=== PATIENT | female | born 1935 | race Caucasian/White ===

== ENCOUNTER 2019-04-12 18:37 | Emergency (ER) | payer BC, MEDICARE, OTHER ==
[2019-04-12 21:19] LABS: ABSOLUTE BASOPHILS # (AUTO) 0.1 10^3/uL (0.0-0.2); ABSOLUTE EOSINOPHILS # (AUTO) 0.1 10^3/uL (0.0-0.6); ABSOLUTE LYMPHOCYTES (AUTO) 0.9 10^3/uL (0.5-4.7); ABSOLUTE MONOCYTES (AUTO) 0.6 10^3/uL (0.1-1.4); ABSOLUTE NEUT (AUTO) 6.1 10^3/uL (1.7-8.2); BASOPHILS % (AUTO) 0.8 % (0-2); EOSINOPHILS % (AUTO) 1.4 % (0-6); HEMOGLOBIN 9.6 g/dL (12.0-15.5); LYMPHOCYTES % (AUTO) 11.4 % (13-45); MEAN CORPUSCULAR HEMOGLOBIN 28.9 pg (27.0-33.4); MEAN CORPUSCULAR HGB CONC 33.2 g/dL (32.0-36.0); MEAN CORPUSCULAR VOLUME 87 fl (80-97); PLATELET COUNT 156 10^3/uL (150-450); RED BLOOD COUNT 3.33 10^6/uL (3.72-5.28); RED CELL DISTRIBUTION WIDTH 17.1 % (11.5-14.0); SEGMENTED NEUTROPHILS % (AUTO) 78.4 % (42-78); TOTAL CELLS COUNTED % (AUTO) 100 %; WHITE BLOOD COUNT 7.8 10^3/uL (4.0-10.5)
[2019-04-12 21:40] LABS: ALBUMIN 3.8 g/dL (3.5-5.0); ALKALINE PHOSPHATASE 67 U/L (38-126); ANION GAP 10 (5-19); ASPARTATE AMINO TRANSFERASE 20 U/L (14-36); BILIRUBIN,DIRECT 0.3 mg/dL (0.0-0.4); BILIRUBIN,TOTAL 0.6 mg/dL (0.2-1.3); BLOOD UREA NITROGEN 17 mg/dL (7-20); CALCIUM 9.6 mg/dL (8.4-10.2); CARBON DIOXIDE 28 mmol/L (22-30); CHLORIDE 105 mmol/L (98-107); CREATINE KINASE 56 U/L (30-135); GLUCOSE 130 mg/dL (75-110); POTASSIUM 3.1 mmol/L (3.6-5.0); TOTAL PROTEIN 7.2 g/dL (6.3-8.2)
[2019-04-12 21:52] LABS: CREATINE KINASE MB 1.07 ng/mL (<4.55); TROPONIN I 0.03 ng/mL
--- NOTE | 2019-04-12 21:54 | ER Document Report ---
ED Dizziness/Weakness <KIM VOSS - Last Filed: 04/13/19 00:29> <KATIE,KELBILLYASIF - Last Filed: 04/14/19 16:26> - General Chief Complaint: Weakness Stated Complaint: WEAKNESS Time Seen by Provider: 04/12/19 21:06 Notes: Patient is an 84-year-old female who presents to the emergency department with a chief complaint of weakness. Patient states that she has had multiple falls in the past. She states that she stubbed her toe a couple weeks ago on the left side. Since then she has not been able to do her normal activities of daily living. Patient states that she has family help her. She does have a decubitus ulcer forming on her coccyx area. Patient's family and friends have been using Neosporin for the area. Patient states that she uses a walker, but now her knees are giving out on her. Patient states that she lays in bed most of the day. (KIM VOSS) - Related Data Allergies/Adverse Reactions: No Known Allergies Allergy (Verified 04/12/19 19:15) Past Medical History - Social History Smoking Status: Never Smoker Frequency of alcohol use: None Drug Abuse: None Patient has suicidal ideation: No Patient has homicidal ideation: No <KIM VOSS - Last Filed: 04/13/19 00:29> - Social History Smoking Status: Never Smoker Lives with: Spouse/Significant other Family History: Reviewed & Not Pertinent <ABRAHAN WILSON - Last Filed: 04/14/19 16:26> Review of Systems <KIM VOSS - Last Filed: 04/13/19 00:29> - Review of Systems Notes: REVIEW OF SYSTEMS: CONSTITUTIONAL : Denies recent illness. Denies recent unintentional weight loss. Denies fever, chills, or sweats. EENT: Denies eye, ear, throat, or mouth pain, discharge, or symptoms. Denies nasal or sinus congestion. CARDIOVASCULAR: Denies chest pain. RESPIRATORY: Denies shortness of breath, cough, congestion, difficulty breathing, or wheezing. GASTROINTESTINAL: Denies nausea, vomiting, and diarrhea. Denies abdominal pain. Denies constipation. GENITOURINARY: Denies difficulty urinating, burning, blood in urine, urgency or frequency. MUSCULOSKELETAL: See HPI. SKIN: Denies rash, itchiness, or lesions HEMATOLOGIC : Denies easy bruising or bleeding. LYMPHATIC: Denies swollen, painful, enlarged glands. NEUROLOGICAL: Denies no numbness or tingling. Denies headache. Denies altered mental status. Denies alteration in speech. See HPI. PSYCHIATRIC: Denies stress, anxiety, alteration in sleep patterns, or depression. All other systems reviewed and negative. (MEJIA VOSSJESSICA Ann) Physical Exam <KIM VOSS - Last Filed: 04/13/19 00:29> - Vital signs Vitals: Pulse Ox 97 04/12/19 20:54 - Notes Notes: PHYSICAL EXAMINATION: GENERAL: Appears stated age, no acute distress. HEAD: Normocephalic, atraumatic. EYES: PERRL, conjunctiva normal, all extraocular movements intact, sclera nonicteric ENT: Dry mucous membranes. NECK: Supple, no noticeable swelling, redness, rash. Normal range of motion. LUNGS: Equal breath sounds bilaterally and clear to auscultation. No wheezes rales or rhonchi. CARDIOVASCULAR: S1-S2, regular rate, regular rhythm. Radial pulses 2+, normal. ABDOMEN: Normoactive bowel sounds. Soft, nontender, no guarding, no rebound tenderness, and no masses palpated. EXTREMITIES: Normal strength and range of motion, no pitting or edema. No cyanosis. NEUROLOGICAL: Moves all extremities upon command. Strength 5/5 in all extremities. Unable to stand. PSYCH: Normal mood, normal affect. SKIN: Warm, dry. Small stage II decubitus ulcer noted to coccyx area. Erythematous area to coccyx area. (MEJIA VOSSJESISCA Ann) Course - Laboratory Result Diagrams: 04/12/19 20:50 04/12/19 20:50 <KIM VOSS - Last Filed: 04/13/19 00:29> - Laboratory Result Diagrams: 04/12/19 20:50 04/13/19 18:11 <ABRAHAN WILSON - Last Filed: 04/14/19 16:26> - Re-evaluation Re-evalutation: 04/12/19 23:00 Hematology shows anemia with a hemoglobin of 9.6 and hematocrit of 29. Chemistry is show potassium of 3.1. This will be replaced. Troponin is indeterminate. Patient adamantly denies any chest pain or abdominal pain. CT of the head shows normal atrophy with small vessel ischemic changes. Her toe x- ray shows a minimally displaced fracture of the proximal phalanx of the great toe. Chest x-ray is unremarkable. Awaiting urinalysis. 04/13/19 00:14 The PCT and I attempted to stand the patient up at the side of the bed, but the patient states that she is too weak and she is afraid of falling. At this time, there is no admission criteria. Urinalysis has resulted and the patient does not meet admission criteria. Patient will be placed on a social hold and director of social media marketing will follow-up in the morning. (SHANIKA,KIM Ann) 04/13/19 12:57 Patient updated regarding plan of care. Spoke with data recovery planner Aniket who states that she is awaiting callback from [facility] and she is providing them with all the needed paperwork to see if patient can be placed in rehab from the emergency department. Aniket states that she will call back advising us whether patient was accepted or not. 04/14/19 11:35 Patient reports feeling improved today although is not able to ambulate unassisted. Patient is still awaiting word on possible placement at [facility]. maintenance planner Andrea is still attempting to make transfer arrangements. PHYSICAL EXAMINATION: GENERAL: Well-appearing and in no acute distress. HEAD: Atraumatic, normocephalic. EYES: sclera anicteric, conjunctiva are normal. ENT: nares patent. Moist mucous membranes. NECK: Normal range of motion, supple without lymphadenopathy LUNGS: CTAB and equal. No wheezes rales or rhonchi. HEART: Regular rate and rhythm without murmurs ABDOMEN: Soft, nontender, normal bowel sounds, no guarding. EXTREMITIES: Normal range of motion, no pitting edema. No cyanosis. BACK: No midline tenderness. No CVA tenderness NEUROLOGICAL: Normal speech. Patient with normal muscle tone 5 out of 5 to bilateral upper and lower extremities although patient unable to bear weight unassisted PSYCH: Normal mood, normal affect. SKIN: Warm, Dry, normal turgor, no rashes or lesions noted 04/14/19 15:24 Spoke with data recovery planner Andrea who is making arrangements for an in-home paraprofessional as well as referrals for PT, OT while we await acceptance on a rehab facility. Daughter has been contacted per discharge planning to arrange for transfer home today. Family and patient are agreeable with this plan of care. Patient will be transferred back to her home via [facility]. Patient advised that their primary doctor can still aid with placement in a rehab facility if [facility] does not accept her. (ABRAHAN WILSON) - Vital Signs Vital signs: Temp Pulse Resp BP Pulse Ox 97.5 F 87 20 159/71 H 95 04/14/19 09:21 04/14/19 09:21 04/14/19 09:21 04/14/19 09:21 04/14/19 09:21 - Laboratory Laboratory results interpreted by me: 04/12/19 04/12/19 04/12/19 20:50 20:50 23:30 RBC 3.33 L Hgb 9.6 L Hct 29.0 L RDW 17.1 H Lymph % (Auto) 11.4 L Seg Neutrophils % 78.4 H Potassium 3.1 L Est GFR (MDRD) Non-Af 54 L Glucose 130 H Urine Ketones TRACE H Urine Nitrite POSITIVE H Urine Urobilinogen 2.0 H 04/13/19 18:11 RBC Hgb Hct RDW Lymph % (Auto) Seg Neutrophils % Potassium 3.3 L Est GFR (MDRD) Non-Af Glucose Urine Ketones Urine Nitrite Urine Urobilinogen Discharge <KIM VOSS - Last Filed: 04/13/19 00:29> <ABRAHAN WILSON - Last Filed: 04/14/19 16:26> - Discharge Clinical Impression: Weakness, Hypokalemia Fracture of phalanx of left great toe Qualifiers: Encounter type: initial encounter Fracture type: closed Phalanx: distal Fracture alignment: displaced Qualified Code(s): S92.422A - Displaced fracture of distal phalanx of left great toe, initial encounter for closed fracture UTI (urinary tract infection) Qualifiers: Urinary tract infection type: site unspecified Hematuria presence: without hematuria Qualified Code(s): N39.0 - Urinary tract infection, site not specified Condition: Stable Disposition: HOME, SELF-CARE Instructions: Cephalexin ([facility]), Hypokalemia ([facility]), Trimethoprim-Sulfa ([facility]), Weakness ([facility]) Additional Instructions: Return immediately for any new or worsening symptoms Followup with your primary care provider, call tomorrow to make a followup appointment Consult has been made for home health care to include a home health aide as well as physical therapy, and Occupational Therapy Your primary doctor can also help with placement into a rehab facility you await and reply from [facility] Increase diet with foods high in potassium such as bananas Prescriptions: Cephalexin Monohydrate [Keflex 500 mg Capsule] 500 mg PO BID 3 Days capsule
--- NOTE | 2019-04-12 22:32 | RADIOLOGY REPORT (SQ) ---
EXAM DESCRIPTION: XR TOES 2 OR MORE VIEWS COMPLETED DATE/TME: 04/12/2019 21:24 CLINICAL HISTORY: 84 years, Female, fall; weakness COMPARISON: None. NUMBER OF VIEWS: 3 TECHNIQUE: 3 views left great toe LIMITATIONS: None. FINDINGS: Osteopenia. Minimally displaced fracture of the proximal portion of the proximal phalanx of the great toe. Associated soft tissue swelling. Vascular calcifications. IMPRESSION: Minimally displaced fracture of the proximal phalanx of the great toe copyright 2010 [employer]- All Rights Reserved
--- NOTE | 2019-04-12 22:32 | RADIOLOGY REPORT (SQ) ---
EXAM DESCRIPTION: XR CHEST 1 VIEW COMPLETED DATE/TME: 04/12/2019 21:23 CLINICAL HISTORY: 84 years, Female, weakness COMPARISON: None NUMBER OF VIEWS: 1 TECHNIQUE: Portable chest LIMITATIONS: None. FINDINGS: Cardiomegaly. Atheromatous change of the thoracic aorta. Electronic device projects over the right hemithorax. Lungs are clear. No pneumothorax IMPRESSION: No acute cardiopulmonary process copyright 2010 [employer]- All Rights Reserved
--- NOTE | 2019-04-12 23:33 | RADIOLOGY REPORT (SQ) ---
EXAM DESCRIPTION: CT HEAD WITHOUT IV CONTRAST COMPLETED DATE/TME: 04/12/2019 21:23 CLINICAL HISTORY: 84 years, Female, weakness COMPARISON: None. TECHNIQUE: 186 Images stored on PACS. All CT scanners at this facility use dose modulation, iterative reconstruction, and/or weight based dosing when appropriate to reduce radiation dose to as low as reasonably achievable (ALARA). [facility]: Dose Right [facility]: CareDose [facility]: Dose Right [facility]: Teradose 4D [facility]: [employer] LIMITATIONS: None. FINDINGS: The globes are intact. The paranasal sinuses and mastoid air cells are unremarkable. No displaced or depressed skull fracture. No intra or extra-axial hemorrhage. CT is limited for evaluation of acute infarct. No CT evidence for large or territorial acute infarct. No mass. No midline shift. Age-appropriate atrophy. Small vessel ischemic change. IMPRESSION: Age-appropriate atrophy with small vessel ischemic change TECHNICAL DOCUMENTATION: Quality ID # 436: Final reports with documentation of one or more dose reduction techniques (e.g., Automated exposure control, adjustment of the mA and/or kV according to patient size, use of iterative reconstruction technique) copyright 2011 [employer]- All Rights Reserved
[2019-04-12 23:51] LABS: APPEARANCE,URINE SLIGHTLY-CLOUDY; BILIRUBIN,URINE NEGATIVE (NEGATIVE); COLOR,URINE YELLOW; GLUCOSE, URINE NEGATIVE (NEGATIVE); KETONES,URINE TRACE mg/dL (NEGATIVE); LEUKOCYTE ESTERASE,URINE NEGATIVE (NEGATIVE); NITRITE,URINE POSITIVE (NEGATIVE); PROTEIN,URINE NEGATIVE (NEGATIVE); URINE SPECIFIC GRAVITY 1.014
[2019-04-13] MEDS: POTASSI CL 20 MEQ/50 ML RIDER 20 MEQ/50 ML RTUPB IV SCH ×2 (00:39→02:43)
--- NOTE | 2019-04-13 08:07 | EKG REPORT ---
SEVERITY:- BORDERLINE ECG - SINUS RHYTHM BORDERLINE LEFT AXIS DEVIATION BORDERLINE T ABNORMALITIES, INFERIOR LEADS : Confirmed by: Jeremy Saldaña MD 13-Apr-2019 08:06:43
[2019-04-13] MEDS ORDERED: CEPHALEXIN 500 MG CAPSULE PO ONE ×2 (16:35→17:07)
[2019-04-13 18:56] LABS: ANION GAP 17 (5-19); BLOOD UREA NITROGEN 12 mg/dL (7-20); CALCIUM 9.5 mg/dL (8.4-10.2); CARBON DIOXIDE 24 mmol/L (22-30); CHLORIDE 102 mmol/L (98-107); GLUCOSE 110 mg/dL (75-110); POTASSIUM 3.3 mmol/L (3.6-5.0)
[2019-04-13] MEDS ORDERED: POTASSIUM CHLORIDE 10 MEQ TABLET.ER PO ONE (19:42)
[2019-04-13] MEDS ORDERED: SIMVASTATIN 10 MG TABLET PO ONE (19:45)
[2019-04-13] MEDS ORDERED: AMLODIPINE BESYLATE 10 MG TABLET PO ONE (19:46)
[2019-04-13] MEDS ORDERED: METFORMIN HCL 500 MG TABLET PO ONE (19:46)
[2019-04-14 09:31] VITALS: BP 159/71
[2019-04-14] MEDS ORDERED: LOSARTAN POTASSIUM 50 MG TABLET PO ONE (10:54)
[2019-04-14] MEDS ORDERED: HYDROCHLOROTHIAZIDE 25 MG TABLET PO ONE (10:56)
[2019-04-14] MEDS ORDERED: CEPHALEXIN 500 MG CAPSULE PO ONE (11:37)
[2019-04-14] MEDS ORDERED: POTASSIUM CHLORIDE 10 MEQ TABLET.ER PO ONE (11:38)
[2019-04-14] MEDS ORDERED: AMLODIPINE BESYLATE 10 MG TABLET PO ONE (11:49)
[2019-04-14] MEDS ORDERED: METFORMIN HCL 500 MG TABLET PO SCH (18:00)
[2019-04-14] MEDS ORDERED: POTASSIUM CHLORIDE 10 MEQ TABLET.ER PO SCH (18:00)
[2019-04-15] MEDS ORDERED: AMLODIPINE BESYLATE 10 MG TABLET PO SCH (10:00)
[2019-04-15] MEDS ORDERED: HYDROCHLOROTHIAZIDE 25 MG TABLET PO SCH (10:00)
[2019-04-15] MEDS ORDERED: SIMVASTATIN 10 MG TABLET PO SCH (22:00)
== END 2019-04-14 19:30 | disposition home or self-care (01) ==
LOC: ER 18:37
DX: S92.422A Displaced fracture of distal phalanx of left great toe, initial encounter for closed fracture (principal); W22.09XA Striking against other stationary object, initial encounter; N39.0 Urinary tract infection, site not specified; E87.6 Hypokalemia; R53.1 Weakness; L89.152 Pressure ulcer of sacral region, stage 2
CPT/HCPCS: 93005; 99285; 96365; 96366; 36415; 87086; 82553; 82550; 85025; 87088; 80048; 80053; 81001; 84484; 87186; 71045; 73660; 70450; 93010; A9270 ×11; J3480

== ENCOUNTER 2019-04-21 13:31 | Emergency (ER) | payer OTHER ==
--- NOTE | 2019-04-21 15:17 | ER Document Report ---
ED General - General Chief Complaint: Urinary Problem Stated Complaint: POSSIBLE UTI Primary Care Provider: BENITA ISIDRO NP [Primary Care Provider] - Follow up as needed - HPI Notes: 84-year-old female presents the emergency room via EMS with both daughters for complaints of generalized weakness, right lower quadrant abdominal bulge, substernal chest pain for the last 3 days. Denies fevers, chills, palpitations, shortness of breath, dyspnea, nausea, vomiting, diarrhea, abdominal pain, hematuria,blurred vision, double vision, loss of vision, speech changes, LH, dizziness, syncope, headaches, wheezing, ST, URI, neck pain, bowel or bladder dysfunction, saddle anesthesia, numbness or tingling in bilateral upper or lower extremities equally, muscle paralysis, weakness in bilateral upper or lower extremities equally or rash. - Related Data Allergies/Adverse Reactions: No Known Allergies Allergy (Verified 04/12/19 19:15) Past Medical History - General Information source: Patient, Relative - Social History Smoking Status: Never Smoker Family History: Reviewed & Not Pertinent Patient has suicidal ideation: No Patient has homicidal ideation: No - Past Medical History Cardiac Medical History: Reports: Hx Hypercholesterolemia, Hx Hypertension Endocrine Medical History: Reports: Hx Diabetes Mellitus Type 2 Past Surgical History: Reports: Hx Section - x4 Review of Systems - Review of Systems Constitutional: See HPI EENT: No symptoms reported Cardiovascular: No symptoms reported Respiratory: No symptoms reported Gastrointestinal: See HPI Genitourinary: No symptoms reported Female Genitourinary: No symptoms reported Musculoskeletal: No symptoms reported Skin: See HPI Hematologic/Lymphatic: No symptoms reported Neurological/Psychological: No symptoms reported Physical Exam - Vital signs Vitals: Temp Pulse Resp BP Pulse Ox 97.3 F 84 16 139/44 H 95 04/21/19 14:04 04/21/19 14:04 04/21/19 14:04 04/21/19 14:04 04/21/19 14:04 - Notes Notes: PHYSICAL EXAMINATION: reviewed vital signs by RN GENERAL: Chronically ill well-nourished and in no acute distress. HEAD: Atraumatic, normocephalic. EYES: Pupils equal round and reactive to light, extraocular movements intact, conjunctiva are normal. ENT: Nares patent, oropharynx clear without exudates. Moist mucous membranes. NECK: Normal range of motion, supple without lymphadenopathy LUNGS: Breath sounds clear to auscultation bilaterally and equal. No wheezes rales or rhonchi. HEART: Regular rate and rhythm without murmurs ABDOMEN: Soft, nontender, nondistended abdomen. No guarding, no rebound. No masses appreciated. Female : deferred Musculoskeletal: Normal range of motion, no pitting or edema. No cyanosis. NEUROLOGICAL: Cranial nerves grossly intact. Normal speech, normal gait. Normal sensory, motor exams PSYCH: Normal mood, normal affect. SKIN: Warm, Dry, normal turgor, no rashes or lesions noted. Course - Re-evaluation Re-evalutation: 04/23/19 11:41 CBC negative for leukocytosis or anemia, CMP negative for hepatic or renal dysfunction, no electrolyte disturbances. EKG negative for STEMI, initial troponin negative. Urinalysis unremarkable. Chest x-ray negative for pneumonia, pneumothorax or other pulmonary issues. No medical diagnoses or etiologies for hospital admission. Discussed with patient that they can be managed outpatient with physical therapy and in coordination with primary care provider as well as with social worker school. Patient and family stated that they do not want to leave the emergency room because she is unable to ambulate at home, she is too weak to go home. Consulted with Raad Erickson, clinical advocate for a social hold. After evaluating patient, Raad felt that patient was appropriate for social hold and will reevaluate in the morning to find a ppropriate outpatient resources for patient. Patient remains afebrile vitals are stable and in his no distress. Dinner tray has been ordered. Patient and family were agreeable with the plan of care. Disposition was given to CYNTHIA Chaudhry at 1999 - Vital Signs Vital signs: Temp Pulse Resp BP Pulse Ox 98.2 F 83 18 157/59 H 93 04/23/19 10:00 04/23/19 10:00 04/23/19 10:00 04/23/19 10:00 04/23/19 10:00 - Laboratory Result Diagrams: 04/21/19 13:55 04/21/19 13:55 Laboratory results interpreted by me: 04/21/19 04/21/19 04/21/19 13:55 13:55 16:20 RBC 3.58 L Hgb 10.2 L Hct 31.3 L RDW 17.5 H BUN 24 H Est GFR (MDRD) Non-Af 50 L Glucose 144 H POC Glucose Direct Bilirubin 0.5 H Urine Urobilinogen 2.0 H 04/22/19 06:42 RBC Hgb Hct RDW BUN Est GFR (MDRD) Non-Af Glucose POC Glucose 135 H Direct Bilirubin Urine Urobilinogen Discharge - Discharge Clinical Impression: right umbilical hernia, Weakness Anemia Qualifiers: Anemia type: unspecified type Qualified Code(s): D64.9 - Anemia, unspecified Condition: Stable Disposition: OTHER Referrals: BENITA ISIDRO, REVENUE CYCLE ADMINISTRATOR [Primary Care Provider] - Follow up as needed
[2019-04-21 16:08] LABS: ABSOLUTE EOSINOPHILS # (AUTO) 0.2 10^3/uL (0.0-0.6); ABSOLUTE LYMPHOCYTES (AUTO) 0.8 10^3/uL (0.5-4.7); ABSOLUTE MONOCYTES (AUTO) 0.7 10^3/uL (0.1-1.4); ABSOLUTE NEUT (AUTO) 4.2 10^3/uL (1.7-8.2); BASOPHILS % (AUTO) 0.5 % (0-2); EOSINOPHILS % (AUTO) 2.9 % (0-6); HEMATOCRIT 31.3 % (36.0-47.0); HEMOGLOBIN 10.2 g/dL (12.0-15.5); LYMPHOCYTES % (AUTO) 13.4 % (13-45); MEAN CORPUSCULAR HEMOGLOBIN 28.5 pg (27.0-33.4); MEAN CORPUSCULAR HGB CONC 32.6 g/dL (32.0-36.0); MEAN CORPUSCULAR VOLUME 87 fl (80-97); MONOCYTES % (AUTO) 11.3 % (3-13); PLATELET COUNT 159 10^3/uL (150-450); RED BLOOD COUNT 3.58 10^6/uL (3.72-5.28); RED CELL DISTRIBUTION WIDTH 17.5 % (11.5-14.0); SEGMENTED NEUTROPHILS % (AUTO) 71.9 % (42-78); TOTAL CELLS COUNTED % (AUTO) 100 %; WHITE BLOOD COUNT 5.8 10^3/uL (4.0-10.5)
--- NOTE | 2019-04-21 16:10 | RADIOLOGY REPORT (SQ) ---
EXAM DESCRIPTION: CHEST SINGLE VIEW COMPLETED DATE/TIME: 04/21/2019 4:02 pm REASON FOR STUDY: chest pain COMPARISON: Chest film 04/12/2019 EXAM PARAMETERS: NUMBER OF VIEWS: One view. TECHNIQUE: Single frontal radiographic view of the chest acquired. RADIATION DOSE: NA LIMITATIONS: None. FINDINGS: LUNGS AND PLEURA: No opacities, masses or pneumothorax. No pleural effusion. 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 This is similar compared to 2018 HEART AND VASCULAR STRUCTURES: Heart normal in size. Normal vasculature. BONES: PUD rightward bulky osteophyte at about the T7-8 level unchanged. HARDWARE: None in the chest. OTHER: No other significant finding. IMPRESSION: NO ACUTE RADIOGRAPHIC FINDING IN THE CHEST. TECHNICAL DOCUMENTATION: JOB ID: [id number] [employer]- All Rights Reserved Reading location - IP/workstation name: [email or web address]
[2019-04-21 16:11] LABS: INTERNATIONAL RATION (INR) 1.06; PROTHROMBIN TIME 13.8 SEC (11.4-15.4)
[2019-04-21 16:12] LABS: PARTIAL THROMBOPLASTIN TIME 25.8 SEC (23.5-35.8)
[2019-04-21 16:15] LABS: ALBUMIN 4.1 g/dL (3.5-5.0); ALKALINE PHOSPHATASE 70 U/L (38-126); ANION GAP 10 (5-19); ASPARTATE AMINO TRANSFERASE 24 U/L (14-36); BILIRUBIN,DIRECT 0.5 mg/dL (0.0-0.4); BILIRUBIN,TOTAL 0.6 mg/dL (0.2-1.3); BLOOD UREA NITROGEN 24 mg/dL (7-20); CALCIUM 9.6 mg/dL (8.4-10.2); CARBON DIOXIDE 29 mmol/L (22-30); CHLORIDE 102 mmol/L (98-107); GLUCOSE 144 mg/dL (75-110); POTASSIUM 3.6 mmol/L (3.6-5.0); TOTAL PROTEIN 7.6 g/dL (6.3-8.2)
[2019-04-21 16:26] LABS: NT PRO BNP 259 pg/mL (<450)
[2019-04-21 16:27] LABS: TROPONIN I < 0.012 ng/mL
[2019-04-21 16:35] LABS: APPEARANCE,URINE CLEAR; BILIRUBIN,URINE NEGATIVE (NEGATIVE); COLOR,URINE YELLOW; GLUCOSE, URINE NEGATIVE (NEGATIVE); KETONES,URINE NEGATIVE (NEGATIVE); LEUKOCYTE ESTERASE,URINE NEGATIVE (NEGATIVE); NITRITE,URINE NEGATIVE (NEGATIVE); PROTEIN,URINE NEGATIVE (NEGATIVE); URINE SPECIFIC GRAVITY 1.012
--- NOTE | 2019-04-21 16:37 | RADIOLOGY REPORT (SQ) ---
EXAM DESCRIPTION: CT HEAD WITHOUT COMPLETED DATE/TIME: 04/21/2019 4:13 pm REASON FOR STUDY: chest pain COMPARISON: 04/12/2019. TECHNIQUE: Axial images acquired through the brain without intravenous contrast. Images reviewed wi th bone, brain and subdural windows. Additional sagittal and coronal reconstructions were generated. Images stored on PACS. All CT scanners at this facility use dose modulation, iterative reconstruction, and/or weight based d osing when appropriate to reduce radiation dose to as low as reasonably achievable (ALARA). [facility]: Dose Right [facility]: CareDose [facility]: Dose Right [facility]: Teradose 4D [facility]: [employer] RADIATION DOSE: CT Rad equipment meets quality standard of care and radiation dose reduction techniq ues were employed. CTDIvol: 53.2 mGy. DLP: 964 mGy-cm.mGy. LIMITATIONS: None. FINDINGS: VENTRICLES: Prominent. CEREBRUM: No masses. No hemorrhage. No midline shift. Areas of low density in the white matter mos t likely due to chronic micro-vascular ischemic change. No evidence for acute infarction. CEREBELLUM: No masses. No hemorrhage. No alteration of density. No evidence for acute infarction. EXTRAAXIAL SPACES: Age-related involutional change. No fluid collections. No masses. ORBITS AND GLOBE: No intra- or extraconal masses. Normal contour of globe without masses. CALVARIUM: No fracture. PARANASAL SINUSES: No fluid or mucosal thickening. SOFT TISSUES: No mass or hematoma. OTHER: No other significant finding. IMPRESSION: CHRONIC CHANGES OF ATROPHY AND MICROVASCULAR ISCHEMIA. NO ACUTE PROCESS. EVIDENCE OF ACUTE STROKE: NO. TECHNICAL DOCUMENTATION: JOB ID: [id number] Quality ID # 436: Final reports with documentation of one or more dose reduction techniques (e.g., Au tomated exposure control, adjustment of the mA and/or kV according to patient size, use of iterative reconstruction technique) 2010 [employer]- All Rights Reserved Reading location - IP/workstation name: [email or web address]
--- NOTE | 2019-04-21 17:49 | RADIOLOGY REPORT (SQ) ---
EXAM DESCRIPTION: U/S ABDOMEN LIMITED W/O DOP COMPLETED DATE/TIME: 04/21/2019 5:27 pm REASON FOR STUDY: hernia RLQ COMPARISON: None. TECHNIQUE: Dynamic and static grayscale images acquired of the abdomen and recorded on PACS. Additio nal selected color Doppler and spectral images recorded. LIMITATIONS: None. FINDINGS: Focused ultrasound along the anterior abdominal wall periumbilical region was performed. Patient has a palpable abnormality along the rightward aspect of the umbilicus. At ultrasound, there is bulging of mesenteric or omental fat through the small umbilical defect, with a 3.5 cm reducible fatty nodule present. No peristalsis to suggest herniated bowel. Based fatty protrusions through the umbilicus is reducible with gentle pressure from the transducer. IMPRESSION: Fat containing umbilical hernia. TECHNICAL DOCUMENTATION: JOB ID: [id number] [employer]- All Rights Reserved Reading location - IP/workstation name: [email or web address]
--- NOTE | 2019-04-21 22:39 | EKG REPORT ---
SEVERITY:- ABNORMAL ECG - SINUS RHYTHM BORDERLINE LEFT AXIS DEVIATION NONSPECIFIC T ABNORMALITIES, ANTERIOR LEADS : Confirmed by: Glenda Barrera 21-Apr-2019 22:38:57
[2019-04-22] MEDS: HYDROCHLOROTHIAZIDE 25 MG TABLET PO SCH ×2 (07:48→09:32)
[2019-04-22] MEDS: LOSARTAN POTASSIUM 50 MG TABLET PO SCH ×2 (07:49→09:32)
[2019-04-22] MEDS: AMLODIPINE BESYLATE 10 MG TABLET PO SCH ×2 (07:49→09:32)
[2019-04-22] MEDS: METFORMIN HCL 500 MG TABLET PO SCH ×2 (09:32→18:32)
--- NOTE | 2019-04-22 14:21 | ER Document Report ---
Doctor's Note Notes: 04/22/19 13:40 Spoke with menu planner, Ciara Kwok, who recommends obtaining a PT referral at this time. Ciara states that she does have a planned consult with the patient's daughter to discuss discharge plan of care. 04/22/19 14:20 Consult placed to hospitalist CYNTHIA Wood who does agree to evaluate patient. CYNTHIA Wood advised of discharge planning request for PT referral placement. 04/22/19 18:30 Consulted again with menu planner Ciara who states that she will be in charge of forwarding [facility] the appropriate paperwork and will again apply for placement. We are currently pending PT evaluation that should occur tomorrow. (ABRAHAN WILSON) 04/25/19 19:55 Patient remains a social hold. It seems placement will not happen until Saturday. No acute medical issues at present. (ANUPAM,JESSICA Fry)
--- NOTE | 2019-04-22 14:46 | Progress Note ---
Provider Note Provider Note: 04/22/2019 I was called by the emergency room provider to facilitate patient's placement into either senior living facility or rehab facility. It was explained to me that the emergency room providers are unable to make a physical therapy consult. production planner scheduler who was involved in this case was asking for a physical therapy consult, that may help the patient be placed in a rehab facility. I was more than happy to put the order in for PT consult x1. History as it was presented to me is 1 of ambulatory dysfunction. Patient evidently was here approximately 1 week ago with the same complaint. Patient was not seen officially nor examined. I did introduce myself to the patient in her room and told her that I would try to help get her placed to the proper facility.
[2019-04-22] MEDS: SIMVASTATIN 40 MG TABLET PO SCH (23:23)
[2019-04-23] MEDS: AMLODIPINE BESYLATE 10 MG TABLET PO SCH (09:38)
[2019-04-23] MEDS: METFORMIN HCL 500 MG TABLET PO SCH ×2 (09:38→18:55)
[2019-04-23] MEDS: HYDROCHLOROTHIAZIDE 25 MG TABLET PO SCH (09:38)
[2019-04-23] MEDS: LOSARTAN POTASSIUM 50 MG TABLET PO SCH (09:38)
[2019-04-23] MEDS: SIMVASTATIN 40 MG TABLET PO SCH (21:21)
[2019-04-24] MEDS: AMLODIPINE BESYLATE 10 MG TABLET PO SCH (10:00)
[2019-04-24] MEDS: HYDROCHLOROTHIAZIDE 25 MG TABLET PO SCH (10:00)
[2019-04-24] MEDS: LOSARTAN POTASSIUM 50 MG TABLET PO SCH (10:01)
[2019-04-24] MEDS: METFORMIN HCL 500 MG TABLET PO SCH ×2 (10:01→18:15)
[2019-04-24] MEDS: SIMVASTATIN 40 MG TABLET PO SCH (21:46)
[2019-04-25] MEDS: METFORMIN HCL 500 MG TABLET PO SCH ×2 (09:39→18:03)
[2019-04-25] MEDS: HYDROCHLOROTHIAZIDE 25 MG TABLET PO SCH (09:39)
[2019-04-25] MEDS: LOSARTAN POTASSIUM 50 MG TABLET PO SCH (09:39)
[2019-04-25] MEDS: AMLODIPINE BESYLATE 10 MG TABLET PO SCH (09:39)
[2019-04-25] MEDS: SIMVASTATIN 40 MG TABLET PO SCH ×2 (21:24→23:07)
[2019-04-26] MEDS: LOSARTAN POTASSIUM 50 MG TABLET PO SCH (10:27)
[2019-04-26] MEDS: METFORMIN HCL 500 MG TABLET PO SCH ×2 (10:27→18:07)
[2019-04-26] MEDS: AMLODIPINE BESYLATE 10 MG TABLET PO SCH (10:27)
[2019-04-26] MEDS: HYDROCHLOROTHIAZIDE 25 MG TABLET PO SCH (10:27)
--- NOTE | 2019-04-26 18:48 | ER Document Report ---
Doctor's Note Notes: 04/26/19 18:48 Patient continues to wait for placement. Nurse taking care of her today reports that the patient does not make any attempt to get up or move about. She is having some redness developing on her sacral region, so they have been turning her, repositioning her, and changing pillow placements to try to help prevent her from getting bedsores. They are concerned that she is intentionally not participating in her care in an attempt to get placed into [facility].
[2019-04-26] MEDS: SIMVASTATIN 40 MG TABLET PO SCH (22:20)
[2019-04-27] MEDS: LOSARTAN POTASSIUM 50 MG TABLET PO SCH (10:15)
[2019-04-27] MEDS: METFORMIN HCL 500 MG TABLET PO SCH ×2 (10:15→18:16)
[2019-04-27] MEDS: HYDROCHLOROTHIAZIDE 25 MG TABLET PO SCH (10:15)
[2019-04-27] MEDS: AMLODIPINE BESYLATE 10 MG TABLET PO SCH (10:16)
--- NOTE | 2019-04-27 17:55 | ER Document Report ---
Doctor's Note Notes: 04/27/19 17:54 Physical therapy did come by earlier this morning and worked with the patient with getting up and down and sitting on the edge of the bed and balance. Otherwise it was an unremarkable day.
[2019-04-27] MEDS: SIMVASTATIN 40 MG TABLET PO SCH (21:32)
[2019-04-28] MEDS: LOSARTAN POTASSIUM 50 MG TABLET PO SCH (09:20)
[2019-04-28] MEDS: AMLODIPINE BESYLATE 10 MG TABLET PO SCH (09:20)
[2019-04-28] MEDS: METFORMIN HCL 500 MG TABLET PO SCH ×2 (09:20→17:41)
[2019-04-28] MEDS: HYDROCHLOROTHIAZIDE 25 MG TABLET PO SCH (09:20)
--- NOTE | 2019-04-28 18:31 | ER Document Report ---
Doctor's Note Notes: 04/28/19 18:28 See the social workers notes from yesterday and today. Patient is presently sitting up in a recliner eating supper. Vital signs are stable. She is comfortable. She is getting up and down more, since she started her physical therapy yesterday.
[2019-04-28] MEDS: SIMVASTATIN 40 MG TABLET PO SCH (21:23)
[2019-04-29] MEDS: AMLODIPINE BESYLATE 10 MG TABLET PO SCH (09:21)
[2019-04-29] MEDS: HYDROCHLOROTHIAZIDE 25 MG TABLET PO SCH (09:21)
[2019-04-29] MEDS: LOSARTAN POTASSIUM 50 MG TABLET PO SCH (09:21)
[2019-04-29] MEDS: METFORMIN HCL 500 MG TABLET PO SCH ×2 (09:22→18:13)
--- NOTE | 2019-04-29 19:35 | ER Document Report ---
Doctor's Note Notes: 04/29/19 19:34 Patient seen and examined. She expresses no concerns other than some discomfort with a foam pad that was placed over a sore on her backside. Otherwise, she is eating and drinking normally. Taking her medications. Has no other acute complaints or concerns. Still awaiting placement, please see case management notes. Objective: This is a pleasant 84-year-old female who appears younger than her stated age in no acute distress. Head is normocephalic and atraumatic. Heart is regular rate and rhythm with loud systolic murmur, lungs are clear to auscultation bilaterally. Abdomen is soft, nontender, normoactive bowel sounds. She does have 1 stage I decubitus noted in the sacral region without any other signs of significant skin breakdown. Assessment: generalized weakness, umbilical hernia, decubitus ulcer. Plan: We will keep an eye on the decubitus ulcer. Generalized weakness being dealt with with physical therapy. Awaiting placement. Will reevaluate tomorrow.
[2019-04-29] MEDS: SIMVASTATIN 40 MG TABLET PO SCH (21:17)
[2019-04-30 05:48] VITALS: BP 147/61
[2019-04-30] MEDS: HYDROCHLOROTHIAZIDE 25 MG TABLET PO SCH (09:05)
[2019-04-30] MEDS: METFORMIN HCL 500 MG TABLET PO SCH (09:05)
[2019-04-30] MEDS: AMLODIPINE BESYLATE 10 MG TABLET PO SCH (09:07)
[2019-04-30] MEDS: LOSARTAN POTASSIUM 50 MG TABLET PO SCH (09:07)
--- NOTE | 2019-04-30 15:14 | ER Document Report ---
Doctor's Note Notes: 04/30/19 15:12 Patient was seen and examined. She was upright in the chair, doing her physical therapy exercises. She denies any pain or discomfort. She has been eating and drinking normally. No other acute complaints or concerns. I was notified by case management that the patient has a bed at [facility], will be able to be discharged to that facility today. Vital signs reviewed. Patient is awake and alert, cooperative with examiner. No acute distress. Heart is regular rate and rhythm, lungs are clear to auscultation bilaterally. Abdomen is soft and nontender. No CVA tenderness. Skin is warm and dry. Assessment: Patient with generalized weakness. She had a urinary tract infection that is cleared, been treated appropriately. Plan: Patient is stable. We will continue her on medications, discharge the patient to [facility].
== END 2019-04-30 16:45 ==
LOC: ER 13:31
DX: R53.1 Weakness (principal); K42.9 Umbilical hernia without obstruction or gangrene; D64.9 Anemia, unspecified; R07.2 Precordial pain; I10 Essential (primary) hypertension; E11.9 Type 2 diabetes mellitus without complications; R01.1 Cardiac murmur, unspecified; L89.151 Pressure ulcer of sacral region, stage 1; Z75.1 Person awaiting admission to adequate facility elsewhere
CPT/HCPCS: 93005; 99284; 36415; 82962; 83690; 85025; 85610; 85730; 80053; 81001; 84484; 83880; 71045; 76705; 70450; 93010; 97530; A9270 ×44

== ENCOUNTER 2019-12-11 11:01 | Observation (INO) | payer MEDICARE, MEDICAID ==
[2019-12-11 11:43] LABS: VENOUS BLOOD BASE EXCESS 1.5 mmol/L; VENOUS BLOOD HCO3 26.6 mmol/L (20-32); VENOUS BLOOD PCO2 44.4 mmHg (35-63); VENOUS BLOOD PH 7.4 (7.30-7.42)
[2019-12-11 11:50] LABS: ABSOLUTE BASOPHILS # (AUTO) 0.1 10^3/uL (0.0-0.2); ABSOLUTE EOSINOPHILS # (AUTO) 0.1 10^3/uL (0.0-0.6); ABSOLUTE LYMPHOCYTES (AUTO) 0.8 10^3/uL (0.5-4.7); ABSOLUTE MONOCYTES (AUTO) 0.5 10^3/uL (0.1-1.4); ABSOLUTE NEUT (AUTO) 4.4 10^3/uL (1.7-8.2); BASOPHILS % (AUTO) 1.1 % (0-2); EOSINOPHILS % (AUTO) 2.1 % (0-6); HEMATOCRIT 23.1 % (36.0-47.0); MEAN CORPUSCULAR HEMOGLOBIN 20.8 pg (27.0-33.4); MEAN CORPUSCULAR HGB CONC 30.5 g/dL (32.0-36.0); MEAN CORPUSCULAR VOLUME 68 fl (80-97); MONOCYTES % (AUTO) 9.1 % (3-13); PLATELET COUNT 177 10^3/uL (150-450); RED BLOOD COUNT 3.39 10^6/uL (3.72-5.28); RED CELL DISTRIBUTION WIDTH 20.5 % (11.5-14.0); SEGMENTED NEUTROPHILS % (AUTO) 73.7 % (42-78); TOTAL CELLS COUNTED % (AUTO) 100 %
[2019-12-11 11:51] LABS: PROTHROMBIN TIME 13.4 SEC (11.4-15.4)
--- NOTE | 2019-12-11 11:57 | ER Document Report ---
ED General - General Chief Complaint: Abnormal Lab Results Stated Complaint: ABNORMAL LABS/SHORTNESS OF BREATH Time Seen by Provider: 12/11/19 11:42 Primary Care Provider: SANJANA WHEAT MD [Primary Care Provider] - Follow up as needed - HPI Notes: Chief complaint: Anemia and shortness of breath History of present illness: 84-year-old female [facility] resident from [facility] and because of progressive shortness of breath over the past 5 to 7 days and finding of worsening anemia with a hemoglobin there yesterday reported as 6.8 g. Patient denies any abdominal pain, nausea/vomiting, hematemesis, melena or hematochezia. She has been chronically anemic in the past. Patient says she is ordinarily ambulatory with a walker. She is found it difficult to walk within the last several days due to dyspnea. She denies chest pain, syncope, or presyncope. Primary provider: Sanjana Wheat - Related Data Allergies/Adverse Reactions: No Known Allergies Allergy (Verified 04/12/19 19:15) Past Medical History - General Information source: Patient, [facility] Records - Social History Smoking Status: Never Smoker Chew tobacco use (# tins/day): No Frequency of alcohol use: None Drug Abuse: None Lives with: [facility] Family History: Reviewed & Not Pertinent Patient has homicidal ideation: No - Past Medical History Cardiac Medical History: Reports: Hx Hypercholesterolemia, Hx Hypertension Endocrine Medical History: Reports: Hx Diabetes Mellitus Type 2 Past Surgical History: Reports: Hx Section - x4 Review of Systems - Review of Systems Notes: Constitutional: Negative for fever. HENT: Negative for sore throat. Eyes: Negative for visual changes. Cardiovascular: Negative for chest pain. Respiratory: Negative for shortness of breath. Gastrointestinal: Negative for abdominal pain, vomiting or diarrhea. Genitourinary: Mild dysuria. Musculoskeletal: Negative for back pain. Skin: Negative for rash. Neurological: Negative for headaches, focal weakness or numbness. 10 point ROS negative except as marked above and in HPI. Physical Exam - Vital signs Vitals: Temp 98.8 F 12/11/19 11:02 - Notes Notes: GENERAL: Frail elderly female appearing in no acute distress. SKIN: Pale. Good turgor no rashes. HEAD: Normocephalic atraumatic. EYES: PERRLA. EOMI. Conjunctivae and sclerae clear. EARS: CANALS AND TMS CLEAR. NOSE: CLEAR. MOUTH: Moist mucosa. Good dentition. No stridor or edema. No drooling. NECK: Supple. No masses or thyromegaly. No adenopathy. Carotids 2+ without bruits. No JVD. BACK: Symmetrical without tenderness. CHEST: Respirations unlabored. Breath sounds clear and symmetrical. HEART: Regular rhythm. No murmur gallop or rub. ABDOMEN: Soft nontender without masses, organomegaly or rebound. Bowel sounds normally active. No bruits. GENITALIA: Deferred. EXTREMITIES: No edema. No calf tenderness. Cap refill less than 1.5 seconds. Dorsalis pedis and posterior tibial pulses 3+ and symmetrical. NEUROLOGICAL: GCS 15. Alert and oriented x3. Fluent speech. Cranial nerves II through XII intact. Sensorimotor and cerebellar normal. Normal tone. PSYCHIATRIC: Appropriate affect. Course - Re-evaluation Re-evalutation: Patient does not appear to be bleeding acutely. Her stool was heme-negative. Her anemia has progressed and she is approaching the point of needing a transfusion. Discussion with patient and her daughter indicates that she was previously transfused about 2 years ago. Specific cause of her anemia was not clearly established at that time. She is marginally hypoxemic on room air. I placed her on low flow oxygen. She also has evidence of a previously undiagnosed multinodular goiter. Thyroid studies are pending. Patient was discussed with the on-call hospitalist Dr. Ty and plan is to admit to observation status at this time. Findings, clinical impression and plan of treatment have been discussed with patient/family. Understanding of current findings and recommendations has been acknowledged by them and there is agreement regarding disposition and follow-up. 12/11/19 17:57 - Vital Signs Vital signs: Temp Pulse Resp BP Pulse Ox 98.8 F 19 145/60 H 91 L 12/11/19 12:01 12/11/19 16:00 12/11/19 14:01 12/11/19 16:00 - Laboratory Result Diagrams: 12/11/19 11:20 12/11/19 11:20 Laboratory results interpreted by me: 12/11/19 12/11/19 12/11/19 11:20 11:20 12:27 RBC 3.39 L Hgb 7.0 L Hct 23.1 L MCV 68 L MCH 20.8 L MCHC 30.5 L RDW 20.5 H Est GFR ( Amer) 57 L Est GFR (MDRD) Non-Af 47 L Glucose 130 H POC Glucose 140 H Urine Nitrite (Reflex) Leukocyte Esterase Rfl 12/11/19 13:00 RBC Hgb Hct MCV MCH MCHC RDW Est GFR ( Amer) Est GFR (MDRD) Non-Af Glucose POC Glucose Urine Nitrite (Reflex) POSITIVE H Leukocyte Esterase Rfl SMALL H - Diagnostic Test Radiology reviewed: Reports reviewed - Chest CT per radiologist: Right lower lobe atelectasis with moderate-sized pleural effusion. Multinodular goiter extending into the anterior mediastinum. Thyroid ultrasound: Multinodular goiter. - EKG Interpretation by Me Additional EKG results interpreted by me: 12/11/19 13:40 Twelve-lead EKG from 1254 hrs. reviewed contemporaneously by me demonstrating a normal sinus rhythm with a rate of 89 and a QRS axis of -32 degrees. There are borderline T wave abnormalities as well as the left axis deviation. Comparison of this tracing to prior study of 04/21/2019 shows no significant interval change Impression left axis deviation and nonspecific T wave abnormality. Indication for current study generalized weakness. Discharge - Discharge Clinical Impression: Microcytic anemia, Right pleural effusion, Multinodular goiter Dyspnea Qualifiers: Dyspnea type: dyspnea on exertion Qualified Code(s): R06.00 - Dyspnea, unspecified Condition: Good Disposition: ADMITTED OBSERVATION Admitting Provider: Agustin (Hospitalist) Unit Admitted: Medical Floor Referrals: SANJANA WHEAT MD [Primary Care Provider] - Follow up as needed
[2019-12-11 12:02] LABS: ALBUMIN 4.5 g/dL (3.5-5.0); ALKALINE PHOSPHATASE 67 U/L (38-126); ANION GAP 11 (5-19); ASPARTATE AMINO TRANSFERASE 22 U/L (14-36); BILIRUBIN,DIRECT 0.3 mg/dL (0.0-0.4); BILIRUBIN,TOTAL 0.6 mg/dL (0.2-1.3); BLOOD UREA NITROGEN 14 mg/dL (7-20); CALCIUM 9.3 mg/dL (8.4-10.2); CARBON DIOXIDE 27 mmol/L (22-30); CHLORIDE 104 mmol/L (98-107); GLUCOSE 130 mg/dL (75-110); POTASSIUM 4.2 mmol/L (3.6-5.0); TOTAL PROTEIN 7.6 g/dL (6.3-8.2)
--- NOTE | 2019-12-11 12:12 | RADIOLOGY REPORT (SQ) ---
EXAM DESCRIPTION: CHEST SINGLE VIEW IMAGES COMPLETED DATE/TIME: 12/11/2019 12:02 pm REASON FOR STUDY: possible pneumonia COMPARISON: AP view of the chest from 04/21/2019. EXAM PARAMETERS: NUMBER OF VIEWS: One view. TECHNIQUE: An AP view of the chest was obtained. RADIATION DOSE: NA LIMITATIONS: None. FINDINGS: LUNGS AND PLEURA: Dense opacity in the inferior aspect of the right hemithorax that obscur es the contour of the hemidiaphragm and blunts the lateral costophrenic sulcus. The left lateral cos tophrenic sulcus is also blunted. There is no pneumothorax. MEDIASTINUM AND HILAR STRUCTURES: No mediastinal or hilar contour abnormality. HEART AND VASCULAR STRUCTURES: The cardiac silhouette is enlarged. The pulmonary vasculature is with in normal limits given the low inspiratory lung volumes. BONES: Osteoarthrosis of the glenohumeral joints. HARDWARE: None in the chest. OTHER: No other finding. IMPRESSION: Dense opacity in the inferior aspect of the right hemithorax that could represent a comb ination of pleural fluid, atelectasis and or pneumonia. TECHNICAL DOCUMENTATION: JOB ID: [id number] 2010 [employer]- All Rights Reserved Reading location - IP/workstation name: [email or web address]
[2019-12-11 13:31] LABS: APPEARANCE,URINE SLIGHTLY-CLOUDY; BILIRUBIN,URINE NEGATIVE (NEGATIVE); COLOR,URINE YELLOW; GLUCOSE, URINE NEGATIVE (NEGATIVE); KETONES,URINE NEGATIVE (NEGATIVE); PROTEIN,URINE NEGATIVE (NEGATIVE); URINE SPECIFIC GRAVITY 1.009; UROBILINOGEN,URINE NEGATIVE mg/dL (<2.0)
--- NOTE | 2019-12-11 15:10 | RADIOLOGY REPORT (SQ) ---
EXAM DESCRIPTION: CT CHEST WITH IMAGES COMPLETED DATE/TIME: 12/11/2019 2:51 pm REASON FOR STUDY: abn CXR COMPARISON: None. TECHNIQUE: CT scan of the chest performed using helical scanning technique with dynamic intravenous contrast injection. Images reviewed with lung, soft tissue and bone windows. Reconstructed coronal and sagittal MPR and MIP images reviewed. All images stored on PACS. All CT scanners at this facility use dose modulation, iterative reconstruction, and/or weight based d osing when appropriate to reduce radiation dose to as low as reasonably achievable (ALARA). [facility]: Dose Right [facility]: CareDose [facility]: Dose Right [facility]: Teradose 4D [facility]: [employer] Technologies CONTRAST TYPE AND DOSE: Not recorded here. Refer to technologist's notes. RENAL FUNCTION: BUN 14 creatinine 1.1 RADIATION DOSE: CT Rad equipment meets quality standard of care and radiation dose reduction techniq ues were employed. CTDIvol: 13.1 mGy. DLP: 472 mGy-cm. . LIMITATIONS: None. FINDINGS: LUNGS AND PLEURA: Moderate right pleural effusion with associated right lower lobe atelect asis. Minimal left pleural effusion. HILAR AND MEDIASTINAL STRUCTURES: It appears that the left lobe of the thyroid extends into the upper mediastinum. There are 2 irregular fluid collections. The larger measures 33 mm in largest diamete r. A 3rd fluid collection is seen more inferiorly that measures 18 mm. HEART AND VASCULAR STRUCTURES: No aneurysm or dissection. No central pulmonary emboli. No pericardi al effusion. HARDWARE: None in the chest. UPPER ABDOMEN: No significant findings. Limited exam. THYROID AND OTHER SOFT TISSUES: The thyroid gland appears to be enlarged and heterogeneous and extend s into the upper mediastinum. There is a 33 mm low-density lesion the left lobe of the thyroid. BONES: Thoracic degenerative disc disease with spondylosis. OTHER: No other significant finding. IMPRESSION: 1. Moderate right pleural effusion with associated right lower lobe atelectasis. Minim al left pleural effusion. 2. Enlarged heterogeneous thyroid gland that extends into the upper mediastinum as described. Recom mend thyroid ultrasound. 3. There are 2 additional fluid collections in the upper mediastinum. Cannot exclude necrotic lymph nodes. 4. Thoracic degenerative disc disease and spondylosis. COMMENT: Recommend PET-CT. TECHNICAL DOCUMENTATION: JOB ID: [id number] Quality ID # [id number]: Final reports with documentation of one or more dose reduction techniques (e.g., Au tomated exposure control, adjustment of the mA and/or kV according to patient size, use of iterative reconstruction technique) 2010 [employer]- All Rights Reserved Reading location - IP/workstation name: [email or web address]
--- NOTE | 2019-12-11 17:13 | RADIOLOGY REPORT (SQ) ---
EXAM DESCRIPTION: U/S THYROID/SFT TISS HD NECK IMAGES COMPLETED DATE/TIME: 12/11/2019 4:56 pm REASON FOR STUDY: thyromegaly COMPARISON: None. TECHNIQUE: Dynamic and static chairez-scale images acquired of the thyroid gland. Selected additional c olor/power Doppler images recorded. All images stored to PACS. LIMITATIONS: None. FINDINGS: RIGHT LOBE: Enlarged, 5.4 cm. Heterogeneous echotexture. Nodules are present. The large st measures 2.4 mm. LEFT LOBE: Normal size, 4.5 cm. Heterogeneous echotexture. Nodules are seen. ISTHMUS: Enlarged, 2.4 cm. Heterogeneous echotexture. 22 mm nodule. OTHER: No other significant finding. . IMPRESSION: Multinodular goiter. Consider biopsy of the larger nodules. TIRADS 4 COMMENT: The [employer] (ACR) Thyroid Imaging Reporting And Data System (TI-RADS ) is an ultrasound feature based summed scoring system of risk categorization and management recommen dations for thyroid nodules. TI-RADS assessment categories are as follows: 0 - Incomplete exam: Additional imaging or comparison to prior examinations recommended. 1. - Benign: Fine-needle aspiration or follow-up not routinely recommended in the absence of clinical change. 2. - Not suspicious: Fine-needle aspiration or follow-up not routinely recommended in the absence of clinical change. 3. - Mildly suspicious: Fine-needle aspiration recommended if greater than or equal to 2.5 cm in size . Ultrasound follow-up recommended if greater than or equal to 1.5 cm in size. Follow-up at 1, 3, and 5 years. 4. - Moderately suspicious: Fine-needle aspiration recommended if greater than or equal to 1.5 cm in size. Ultrasound follow-up recommended if greater than or equal to 1.0 cm in size. Follow-up at 1, 2, 3, and 5 years. 5. - Highly suspicious: Fine-needle aspiration recommended if greater than or equal to 1.0 cm in size . Ultrasound follow-up recommended if greater than or equal to 0.5 cm in size. Follow-up at 1, 2, 3, and 5 years. TECHNICAL DOCUMENTATION: JOB ID: [id number] 2010 [employer]- All Rights Reserved Reading location - IP/workstation name: [email or web address]
[2019-12-11] MEDS ORDERED: FUROSEMIDE INJ/PF 20 MG/2 ML SDV IV PRN (18:34)
[2019-12-11] MEDS ORDERED: NORMAL SALINE 250 ML IV PRN ×2 (18:34)
[2019-12-11] MEDS ORDERED: ACETAMINOPHEN 325 MG TABLET PO PRN (18:36)
[2019-12-11] MEDS ORDERED: ALBUTEROL SULFATE 0.083% NEB 2.5 MG/3 ML AMPUL NEB PRN (18:36)
[2019-12-11] MEDS ORDERED: ONDANSETRON HCL INJ/PF 4 MG/2 ML SDV IV PRN (18:36)
[2019-12-11] MEDS ORDERED: MAGNESIUM HYDROXIDE SUSP 30 ML UDCUP PO PRN (18:36)
[2019-12-11] MEDS ORDERED: MAG HYDROX/AL HYDROX/SIMETH SUSP 30 ML UDCUP PO PRN (18:36)
[2019-12-11] MEDS ORDERED: GLUCAGON,HUMAN RECOMB 1 MG INJ IM PRN (18:43)
[2019-12-11] MEDS ORDERED: DEXTROSE 50%-WATER 25 GM/50 ML DISP.SYRIN IV PRN ×2 (18:43)
[2019-12-11] MEDS ORDERED: DEXTROSE 40% GEL 15 GM TUBE PO PRN ×2 (18:43)
--- NOTE | 2019-12-11 19:06 | PDOC H&P ---
History of Present Illness Admission Date/PCP: 12/11/19 18:43 KI GILLIS MD Patient complains of: dyspnea, fatigue History of Present Illness: MERLE ROBERTS is a 84 year old female with a past medical history significant for CHF, DM 2, hypertension, hyperlipidemia, depression/anxiety, overactive bladder, and by medications likely COPD who presented to the emergency department from [facility] with complaint of generalized weakness/fatigue and orthopnea. Patient reports that she recently was treated for pneumonia as an outpatient. Evaluation in the emergency department revealed Hypertension but otherwise stable vital signs, microcytic anemia (hemoglobin 7.0; baseline 10), normal PT/INR, VBG, unremarkable chemistry, lactic acid, TSH. proBNP elevated 2300 wh ich is slightly above her baseline. Urinalysis negative for UTI. Occult stool negative for blood. Chest x-ray revealed right lower lobe atelectasis versus pneumonia with pleural effusion. Follow-ups chest CT demonstrated a moderate right pleural effusion with associated right lower lobe atelectasis. Incidentally found to have an enlarged heterogeneous thyroid and 2 additional fluid collections in the upper mediastinum (could not exclude necrotic lymph nodes) with recommendation for ultrasound follow-up. Thyroid ultrasound revealed enlarged heterogeneous lobes with numerous nodules; largest measuring 2.4 mm. Isthmus containing a 22 mm nodule. Patient is referred to the hospitalist service for further evaluation and management of the above-stated complaints and findings. Past Medical History Cardiac Medical History: Reports: Congestive Heart Failure, Hyperlipidema, Hypertension Denies: Coronary Artery Disease, Myocardial Infarction Pulmonary Medical History: Reports: None EENT Medical History: Reports: None Neurological Medical History: Reports: None Endocrine Medical History: Reports: Diabetes Mellitus Type 2 Renal/ Medical History: Reports: Chronic Kidney Disease Malignancy Medical History: Reports: None Psychiatric Medical History: Reports: Depression Traumatic Medical History: Reports: None Hematology: Reports: Anemia Infectious Medical History: Reports: None Past Surgical History Past Surgical History: Reports: Section - x4 Social History Information Source: Patient, [facility] Records, Outside Facility Records Lives with: Longterm Smoking Status: Never Smoker Electronic Cigarette use?: No Frequency of Alcohol Use: None Hx Recreational Drug Use: No Hx Prescription Drug Abuse: No - Advance Directive Resuscitation Status: Do Not Resuscitate Family History Family History: Reviewed & Not Pertinent Parental Family History Reviewed: Yes Children Family History Reviewed: Yes Sibling(s) Family History Reviewed.: Yes Medication/Allergy Home Medications: Amlodipine Besylate [Norvasc 10 mg Tablet] 10 mg PO DAILY 04/14/19 Hydrochlorothiazide [Hydrodiuril 25 mg Tablet] 25 mg PO QAM 04/14/19 Losartan Potassium [Cozaar 100 mg Tablet] 100 mg PO DAILY 04/14/19 Metformin HCl [Glucophage 500 mg Tablet] 500 mg PO BIDACBS 04/14/19 Simvastatin [Zocor 20 mg Tablet] 20 mg PO QHS 04/14/19 Allergies/Adverse Reactions: No Known Allergies Allergy (Verified 04/12/19 19:15) Review of Systems Constitutional: PRESENT: fatigue, weakness. ABSENT: chills, fever(s), headache(s), weight gain, weight loss Eyes: ABSENT: visual disturbances Ears: ABSENT: hearing changes Cardiovascular: PRESENT: orthropnea. ABSENT: chest pain, dyspnea on exertion, edema, palpitations Respiratory: PRESENT: dyspnea. ABSENT: cough, hemoptysis Gastrointestinal: ABSENT: abdominal pain, constipation, diarrhea, hematemesis, hematochezia, nausea, vomiting Genitourinary: ABSENT: dysuria, hematuria Musculoskeletal: ABSENT: joint swelling Integumentary: ABSENT: rash, wounds Neurological: ABSENT: abnormal gait, abnormal speech, confusion, dizziness, focal weakness, syncope Psychiatric: ABSENT: anxiety, depression, homidical ideation, suicidal ideation Endocrine: ABSENT: cold intolerance, heat intolerance, polydipsia, polyuria Hematologic/Lymphatic: ABSENT: easy bleeding, easy bruising Physical Exam Vital Signs: Temp Pulse Resp BP Pulse Ox 98.8 F 19 145/60 H 91 L 12/11/19 12:01 12/11/19 16:00 12/11/19 14:01 12/11/19 16:00 Intake & Output 12/10/19 12/11/19 12/12/19 06:59 06:59 06:59 Weight 76.204 kg General appearance: PRESENT: no acute distress, cooperative, well-developed, well-nourished Head exam: PRESENT: atraumatic, normocephalic Eye exam: PRESENT: conjunctiva pink, EOMI, PERRLA. ABSENT: scleral icterus Mouth exam: PRESENT: moist, tongue midline Respiratory exam: PRESENT: clear to auscultation marcelo, symmetrical, unlabored. ABSENT: decreased breath sounds, rales, rhonchi, wheezes Cardiovascular exam: PRESENT: RRR. ABSENT: diastolic murmur, rubs, systolic murmur Pulses: PRESENT: normal dorsalis pedis pul Vascular exam: PRESENT: normal capillary refill Extremities exam: PRESENT: full ROM. ABSENT: calf tenderness, clubbing, pedal edema, +1 edema Neurological exam: PRESENT: alert, awake, oriented to person, oriented to place, oriented to time, oriented to situation, CN II-XII grossly intact. ABSENT: motor sensory deficit Psychiatric exam: PRESENT: appropriate affect, normal mood. ABSENT: homicidal ideation, suicidal ideation Skin exam: PRESENT: dry, intact, warm. ABSENT: cyanosis, rash Results Laboratory Results: 12/11/19 11:20 12/11/19 11:20 12/11/19 12/11/19 12/11/19 11:20 11:20 11:20 WBC 6.0 RBC 3.39 L Hgb 7.0 L Hct 23.1 L MCV 68 L MCH 20.8 L MCHC 30.5 L RDW 20.5 H Plt Count 177 Seg Neutrophils % 73.7 VBG pH VBG pCO2 VBG HCO3 VBG Base Excess Sodium 142.3 Potassium 4.2 Chloride 104 Carbon Dioxide 27 Anion Gap 11 BUN 14 Creatinine 1.10 Est GFR ( Amer) 57 L Glucose 130 H Lactic Acid 0.9 Calcium 9.3 Total Bilirubin 0.6 AST 22 Alkaline Phosphatase 67 Total Protein 7.6 Albumin 4.5 TSH Urine Color Urine Appearance Urine pH Ur Specific [place] Urine Protein Urine Glucose (UA) Urine Ketones Urine Blood Urine RBC (Auto) Blood Type Antibody Screen 12/11/19 12/11/19 12/11/19 11:20 11:20 11:20 WBC RBC Hgb Hct MCV MCH MCHC RDW Plt Count Seg Neutrophils % VBG pH 7.40 VBG pCO2 44.4 VBG HCO3 26.6 VBG Base Excess 1.5 Sodium Potassium Chloride Carbon Dioxide Anion Gap BUN Creatinine Est GFR ( Amer) Glucose Lactic Acid Calcium Total Bilirubin AST Alkaline Phosphatase Total Protein Albumin TSH 2.86 Urine Color Urine Appearance Urine pH Ur Specific [place] Urine Protein Urine Glucose (UA) Urine Ketones Urine Blood Urine RBC (Auto) Blood Type A POSITIVE Antibody Screen NEGATIVE 12/11/19 12/11/19 13:00 16:56 WBC RBC Hgb Hct MCV MCH MCHC RDW Plt Count Seg Neutrophils % VBG pH VBG pCO2 VBG HCO3 VBG Base Excess Sodium Potassium Chloride Carbon Dioxide Anion Gap BUN Creatinine Est GFR ( Amer) Glucose Lactic Acid 0.8 Calcium Total Bilirubin AST Alkaline Phosphatase Total Protein Albumin TSH Urine Color YELLOW Urine Appearance SLIGHTLY-CLOUDY Urine pH 7.0 Ur Specific [place] 1.009 Urine Protein NEGATIVE Urine Glucose (UA) NEGATIVE Urine Ketones NEGATIVE Urine Blood NEGATIVE Urine RBC (Auto) 0 Blood Type Antibody Screen 12/11/19 11:20 NT-Pro-B Natriuret Pep 2340 H Impressions: Chest X-Ray 12/11/19 00:00 IMPRESSION: Dense opacity in the inferior aspect of the right hemithorax that could represent a combination of pleural fluid, atelectasis and or pneumonia. Chest CT 12/11/19 13:08 IMPRESSION: 1. Moderate right pleural effusion with associated right lower lobe atelectasis. Minimal left pleural effusion. 2. Enlarged heterogeneous thyroid gland that extends into the upper mediastinum as described. Recommend thyroid ultrasound. 3. There are 2 additional fluid collections in the upper mediastinum. Cannot exclude necrotic lymph nodes. 4. Thoracic degenerative disc disease and spondylosis. Thyroid Ultrasound 12/11/19 15:43 IMPRESSION: Multinodular goiter. Consider biopsy of the larger nodules. TIRADS 4 Assessment and Plan - Diagnosis (1) Microcytic anemia Is this a current diagnosis for this admission?: Yes Plan: Occult stool negative. Anemia panel pending. No evidence of active bleeding. CT imaging and thyroid ultrasound concerning for malignancy. We will transfuse 2 units PRBC as the patient is symptomatic with fatigue, generalized weakness, and dyspnea. Oncology is consulted; appreciate Dr. Estrella's assistance. (2) CHF (congestive heart failure) Qualifiers: Heart failure type: unspecified Heart failure chronicity: unspecified Qualified Code(s): I50.9 - Heart failure, unspecified Is this a current diagnosis for this admission?: Yes Plan: By SNF records, patient with diagnosis of CHF. Patient cannot recall diagnosis. proBNP elevated 0; normal proBNP April this year. We will continue her home dose losartan, Norvasc, simvastatin. Holding home dose of furosemide. We will diurese with IV furosemide 20 mg twice daily. Cardiac diet. Daily weights, strict I&O's. (3) Dyspnea Qualifiers: Dyspnea type: dyspnea on exertion Qualified Code(s): R06.00 - Dyspnea, unspecified Is this a current diagnosis for this admission?: Yes Plan: Secondary #1 and 2. Supplemental oxygen as needed for hypoxia. Supportive care. (4) Multinodular goiter Is this a current diagnosis for this admission?: Yes Plan: Ultrasound found enlarged thyroid lobes and isthmus with numerous nodules. CT of the chest incidentally found to fluid collection; could not exclude necr otic lymph nodes. TSH is normal. Oncology consulted; spoke with Dr. Estrella. He has requested CT soft tissue Neck. (5) Hypertension Is this a current diagnosis for this admission?: Yes Plan: Continue home dose losartan and amlodipin. IV furosemide for diuresis. Low-sodium diet. - Time Time Spent with patient: 35 or more minutes Medications reviewed and adjusted accordingly: Yes Anticipated Discharge Disposition: Senior Living Facility Anticipated Discharge Timeframe: within 48 hours
[2019-12-11 19:40] LABS: ABSOLUTE RETICS # 0.046 10^6/uL (0.028-0.122); RETICULOCYTE COUNT (AUTO) 1.49 % (0.66-2.85)
[2019-12-11 20:13] LABS: IRON(TIBC) < 10.1 ug/dL (37-170)
--- NOTE | 2019-12-11 20:22 | RADIOLOGY REPORT (SQ) ---
EXAM DESCRIPTION: Soft tissue neck CT without contrast. CLINICAL HISTORY: 84 years Female multiple thyroid nodules TECHNIQUE: Soft tissue protocol CT of the neck without using intravenous contrast.. All CT scans at this facility use dose modulation, iterative reconstruction, and/or weight based dosing when appropriate to reduce radiation dose to as low as reasonably achievable. COMPARISON: None. FINDINGS: Sinuses: Visualized paranasal sinuses and mastoid air cells are clear. Soft tissues: Mild edema seen throughout the soft tissues. Salivary glands: Parotid and submandibular salivary glands are unremarkable. Pharynx: The airway is markedly narrowed at the level of the thoracic inlet. The trachea is displaced to the right and distorted. Nodes: Multiple lymph nodes are present at level two of the neck. There are some hyperdense areas that may be lymph nodes or may be associated with a markedly enlarged thyroid gland. The largest lymph nodes not clearly associated with the thyroid gland or level two and level three and measure 2 cm in size. Bones: Extensive degenerative changes present in the cervical spine with endplate spondylosis. There are several millimeters of C4-5 anterolisthesis. No acute destructive bone lesions are seen. Vascular: Calcification is seen in the carotid bulb bilaterally. Thyroid: The thyroid gland is very large and very heterogeneous. It begins at the level of the mid neck and extends into the superior mediastinum to the level of the aortic arch. There is associated narrowing and distortion of the trachea. There are several hyperdense areas present within the thyroid gland which may represent more discrete nodules. On thyroid ultrasound performed earlier in the day biopsy was recommended. Bilateral pleural effusions are noted right greater than left. No pneumothorax. Impression: 1. Markedly enlarged thyroid gland which begins at the level of the mid neck and extends into the upper chest level of the aortic arch. There is associated narrowing and displacement of the trachea. Nonspecific cervical lymphadenopathy is noted. 2. Bilateral pleural effusions right greater than left.
[2019-12-11 20:35] LABS: FERRITIN 7.43 ng/mL (11.1-264.0)
[2019-12-11 21:05] LABS: FOLATE 9.17 ng/mL (>2.76)
[2019-12-11] MEDS: HEPARIN SOD (PORCINE) 5,000 UNIT/ML 1 ML VIAL SUBCUT SCH (21:47)
[2019-12-11] MEDS: INSULIN LISPRO 100 UNIT/ML 3 ML VIAL SUBCUT SCH (21:53)
[2019-12-11] MEDS: FUROSEMIDE INJ/PF 20 MG/2 ML SDV IV SCH (21:56)
[2019-12-11] MEDS: FAMOTIDINE 20 MG TABLET PO SCH (21:56)
[2019-12-11] MEDS: SIMVASTATIN 10 MG TABLET PO SCH (21:56)
--- NOTE | 2019-12-11 23:36 | EKG REPORT ---
SEVERITY:- BORDERLINE ECG - SINUS RHYTHM LEFT AXIS DEVIATION BORDERLINE T WAVE ABNORMALITIES : Confirmed by: Ninfa Ybarra MD 11-Dec-2019 23:35:52
[2019-12-12] MEDS: HEPARIN SOD (PORCINE) 5,000 UNIT/ML 1 ML VIAL SUBCUT SCH ×3 (05:36→22:00)
[2019-12-12] MEDS: LOSARTAN POTASSIUM 50 MG TABLET PO SCH (10:48)
[2019-12-12] MEDS: SERTRALINE HCL 50 MG TABLET PO SCH (10:48)
[2019-12-12] MEDS: FAMOTIDINE 20 MG TABLET PO SCH ×2 (10:48→22:01)
[2019-12-12] MEDS: DOCUSATE SODIUM 100 MG CAPSULE PO SCH (10:49)
[2019-12-12] MEDS: FLUTICASONE NASAL SPRAY 50 MCG/SPRY 120 SPRAY/16 GM NASL SCH (10:49)
[2019-12-12] MEDS: FUROSEMIDE INJ/PF 20 MG/2 ML SDV IV SCH ×3 (10:49→22:00)
[2019-12-12] MEDS: AMLODIPINE BESYLATE 10 MG TABLET PO SCH (10:49)
[2019-12-12] MEDS: INSULIN LISPRO 100 UNIT/ML 3 ML VIAL SUBCUT SCH ×4 (10:50→21:54)
--- NOTE | 2019-12-12 11:02 | PDOC CONSULTATION ---
Consultation Consult Date: 12/12/19 Attending physician:: DAVID STANTON Provider Consulted: TOO JADE Consult reason:: Asked by hospitalist team to see patient with both anemia as well as thyroid nodule concerning for malignancy History of Present Illness Admission Date/PCP: 12/11/19 18:43 KI GILLIS MD Patient complains of: Weakness, shortness of breath History of Present Illness: MERLE ROBERTS is a 84 year old female who presented with weakness and shortness of breath, upon presentation she had hemoglobin of 7, ferritin was only 7, she denies any hematochezia, black stool, and did not notice any bleeding from anywhere else. She received 2 units of packed red blood cell thus far, of note she had chest x-ray followed by CT of the chest which indicated pleural effusion. But also indicated multiple thyroid nodules, concerning appearance. This was followed by thyroid ultrasound as well as CT of the neck, all of which that indicated similar findings. No particular mass in the lung, or lymphadenopathy. But the thyroid nodules were concerning and biopsy was suggested. She herself does not have any complaints of swallowing difficulties and does not feel that that area really bothers her. Past Medical History Cardiac Medical History: Reports: Congestive Heart Failure, Hyperlipidema, Hypertension Denies: Coronary Artery Disease, Myocardial Infarction Pulmonary Medical History: Reports: None EENT Medical History: Reports: None Neurological Medical History: Reports: None Endocrine Medical History: Reports: Diabetes Mellitus Type 2 Renal/ Medical History: Reports: Chronic Kidney Disease Malignancy Medical History: Reports: None Psychiatric Medical History: Reports: Depression Traumatic Medical History: Reports: None Hematology: Reports: Anemia Infectious Medical History: Reports: None Past Surgical History Past Surgical History: Reports: Section - x4 Social History Information Source: Patient Lives with: [facility] Smoking Status: Never Smoker Electronic Cigarette use?: No Frequency of Alcohol Use: None Hx Recreational Drug Use: No Hx Prescription Drug Abuse: No - Advance Directive Resuscitation Status: Do Not Resuscitate Family History Family History: Reviewed & Not Pertinent Parental Family History Reviewed: Yes Children Family History Reviewed: Yes Sibling(s) Family History Reviewed.: Yes Medication/Allergy Home Medications: Amlodipine Besylate [Norvasc 10 mg Tablet] 10 mg PO DAILY 04/14/19 Losartan Potassium [Cozaar 100 mg Tablet] 100 mg PO DAILY 04/14/19 Metformin HCl [Glucophage 500 mg Tablet] 500 mg PO BIDACBS 04/14/19 Simvastatin [Zocor 20 mg Tablet] 20 mg PO QHS 04/14/19 Cyanocobalamin (Vitamin B-12) [Vitamin B-12 1000 Mcg Tablet] 1 tab PO DAILY Docusate Sodium [Colace 100 mg Capsule] 100 mg PO DAILY 12/11/19 Eyelid Cleanser Combination 9 [Systane] 2 each TP QID 12/11/19 Fluticasone Propionate [Flonase Nasal [place] 50 Mcg/[place] 16 gm] 1 spray NASL DAILY 12/11/19 Fluticasone/Salmeterol [Advair 250-50 Diskus 14 Dose/Diskus] 1 inh IH Q12 12/11/19 Furosemide [Lasix 40 mg Tablet] 40 mg PO BID MDD FOR 3 DAYS 12/11/19 Loperamide HCl [Imodium 2 mg Capsule] 2 mg PO Q4HP PRN 12/11/19 Sertraline HCl 25 mg PO QPM 12/11/19 Allergies/Adverse Reactions: No Known Allergies Allergy (Verified 04/12/19 19:15) Review of Systems Constitutional: ABSENT: chills, fever(s), headache(s), weight gain, weight loss Eyes: ABSENT: visual disturbances Ears: ABSENT: hearing changes Cardiovascular: ABSENT: chest pain, dyspnea on exertion, edema, orthropnea, palpitations Respiratory: ABSENT: cough, hemoptysis Gastrointestinal: ABSENT: abdominal pain, constipation, diarrhea, hematemesis, hematochezia, nausea, vomiting Genitourinary: ABSENT: dysuria, hematuria Musculoskeletal: ABSENT: joint swelling Integumentary: ABSENT: rash, wounds Neurological: ABSENT: abnormal gait, abnormal speech, confusion, dizziness, focal weakness, syncope Psychiatric: ABSENT: anxiety, depression, homidical ideation, suicidal ideation Endocrine: ABSENT: cold intolerance, heat intolerance, polydipsia, polyuria Hematologic/Lymphatic: ABSENT: easy bleeding, easy bruising Physical Exam Vital Signs: Temp Pulse Resp BP Pulse Ox 98.2 F 85 16 149/66 H 97 12/12/19 08:05 12/12/19 08:05 12/12/19 08:05 12/12/19 08:05 12/12/19 08:05 Pulse Oximeter Nocturnal Start: 12/11/19 19:02 Freq: RTQ4 Status: Complete Protocol: Document 12/12/19 06:52 CMI (Rec: 12/12/19 06:53 CMI [id number]) Nocturnal Pulse Oximetry Equipment Usage Equipment Discontinued Continuous SpO2 Machine # 3 Intake & Output 12/11/19 12/12/19 12/13/19 06:59 06:59 06:59 Intake Total 350 Balance 350 Weight 72.9 kg General appearance: PRESENT: no acute distress, well-developed, well-nourished Head exam: PRESENT: atraumatic, normocephalic Eye exam: PRESENT: conjunctiva pink, EOMI, PERRLA. ABSENT: scleral icterus Ear exam: PRESENT: normal external ear exam Mouth exam: PRESENT: moist, tongue midline Neck exam: ABSENT: carotid bruit, JVD, lymphadenopathy, thyromegaly Respiratory exam: PRESENT: clear to auscultation marcelo. ABSENT: rales, rhonchi, wheezes Cardiovascular exam: PRESENT: RRR. ABSENT: diastolic murmur, rubs, systolic murmur Pulses: PRESENT: normal dorsalis pedis pul Vascular exam: PRESENT: normal capillary refill GI/Abdominal exam: PRESENT: normal bowel sounds, soft. ABSENT: distended, guarding, mass, organolmegaly, rebound, tenderness Rectal exam: PRESENT: deferred Extremities exam: PRESENT: full ROM. ABSENT: calf tenderness, clubbing, pedal edema Neurological exam: PRESENT: alert, awake, oriented to person, oriented to place, oriented to time, oriented to situation, CN II-XII grossly intact. ABSENT: motor sensory deficit Psychiatric exam: PRESENT: appropriate affect, normal mood. ABSENT: homicidal ideation, suicidal ideation Skin exam: PRESENT: dry, intact, warm. ABSENT: cyanosis, rash Results Laboratory Results: 12/11/19 11:20 12/11/19 11:20 12/11/19 12/11/19 12/11/19 11:20 11:20 11:20 WBC 6.0 RBC 3.39 L Hgb 7.0 L Hct 23.1 L MCV 68 L MCH 20.8 L MCHC 30.5 L RDW 20.5 H Plt Count 177 Seg Neutrophils % 73.7 Retic Count (auto) VBG pH VBG pCO2 VBG HCO3 VBG Base Excess Sodium 142.3 Potassium 4.2 Chloride 104 Carbon Dioxide 27 Anion Gap 11 BUN 14 Creatinine 1.10 Est GFR ( Amer) 57 L Glucose 130 H Lactic Acid 0.9 Calcium 9.3 Iron TIBC Ferritin Total Bilirubin 0.6 AST 22 Alkaline Phosphatase 67 Total Protein 7.6 Albumin 4.5 Vitamin B12 Folate TSH Urine Color Urine Appearance Urine pH Ur Specific [place] Urine Protein Urine Glucose (UA) Urine Ketones Urine Blood Urine RBC (Auto) Blood Type Antibody Screen 12/11/19 12/11/19 12/11/19 11:20 11:20 11:20 WBC RBC Hgb Hct MCV MCH MCHC RDW Plt Count Seg Neutrophils % Retic Count (auto) VBG pH 7.40 VBG pCO2 44.4 VBG HCO3 26.6 VBG Base Excess 1.5 Sodium Potassium Chloride Carbon Dioxide Anion Gap BUN Creatinine Est GFR ( Amer) Glucose Lactic Acid Calcium Iron TIBC Ferritin Total Bilirubin AST Alkaline Phosphatase Total Protein Albumin Vitamin B12 Folate TSH 2.86 Urine Color Urine Appearance Urine pH Ur Specific [place] Urine Protein Urine Glucose (UA) Urine Ketones Urine Blood Urine RBC (Auto) Blood Type A POSITIVE Antibody Screen NEGATIVE 12/11/19 12/11/19 12/11/19 13:00 16:56 19:03 WBC RBC Hgb Hct MCV MCH MCHC RDW Plt Count Seg Neutrophils % Retic Count (auto) 1.49 VBG pH VBG pCO2 VBG HCO3 VBG Base Excess Sodium Potassium Chloride Carbon Dioxide Anion Gap BUN Creatinine Est GFR ( Amer) Glucose Lactic Acid 0.8 Calcium Iron TIBC Ferritin Total Bilirubin AST Alkaline Phosphatase Total Protein Albumin Vitamin B12 Folate TSH Urine Color YELLOW Urine Appearance SLIGHTLY-CLOUDY Urine pH 7.0 Ur Specific [place] 1.009 Urine Protein NEGATIVE Urine Glucose (UA) NEGATIVE Urine Ketones NEGATIVE Urine Blood NEGATIVE Urine RBC (Auto) 0 Blood Type Antibody Screen 12/11/19 19:03 WBC RBC Hgb Hct MCV MCH MCHC RDW Plt Count Seg Neutrophils % Retic Count (auto) VBG pH VBG pCO2 VBG HCO3 VBG Base Excess Sodium Potassium Chloride Carbon Dioxide Anion Gap BUN Creatinine Est GFR ( Amer) Glucose Lactic Acid Calcium Iron < 10.1 L TIBC 413 Ferritin 7.43 L Total Bilirubin AST Alkaline Phosphatase Total Protein Albumin Vitamin B12 806.0 Folate 9.17 TSH Urine Color Urine Appearance Urine pH Ur Specific [place] Urine Protein Urine Glucose (UA) Urine Ketones Urine Blood Urine RBC (Auto) Blood Type Antibody Screen 12/11/19 11:20 NT-Pro-B Natriuret Pep 2340 H Impressions: Chest X-Ray 12/11/19 00:00 IMPRESSION: Dense opacity in the inferior aspect of the right hemithorax that could represent a combination of pleural fluid, atelectasis and or pneumonia. Chest CT 12/11/19 13:08 IMPRESSION: 1. Moderate right pleural effusion with associated right lower lobe atelectasis. Minimal left pleural effusion. 2. Enlarged heterogeneous thyroid gland that extends into the upper mediastinum as described. Recommend thyroid ultrasound. 3. There are 2 additional fluid collections in the upper mediastinum. Cannot exclude necrotic lymph nodes. 4. Thoracic degenerative disc disease and spondylosis. Thyroid Ultrasound 12/11/19 15:43 IMPRESSION: Multinodular goiter. Consider biopsy of the larger nodules. TIRADS 4 Status: Image reviewed by me Assessment & Plan - Diagnosis (1) Anemia Qualifiers: Anemia type: iron deficiency Qualified Code(s): D50.8 - Other iron deficiency anemias Is this a current diagnosis for this admission?: Yes Plan: Iron deficiency anemia, unknown if there was any sort of blood loss but clinically there does not appear to be any blood loss. Given 2 units of packed red blood cell and I will give 1 dose of IV iron today as well. (2) Multinodular goiter Is this a current diagnosis for this admission?: Yes Plan: Multiple thyroid nodules, multiple imaging studies indicate concern for malignancy. I think it would be a good idea to go ahead and get a biopsy while she is admitted. I have ordered ultrasound-guided thyroid biopsy for Saturday. - Time Time Spent: Greater than 70 Minutes - Inpatient Certification Based on my medical assessment, after consideration of the patient's comorbidities, presenting symptoms, or acuity I expect that the services needed warrant INPATIENT care.: Yes I certify that my determination is in accordance with my understanding of Medicare's requirements for reasonable and necessary INPATIENT services [42 CFR 412.3e].: Yes Medical Necessity: Risk of Complication if Not Cared For in Hospital
[2019-12-12 11:44] LABS: HEMATOCRIT 30.4 % (36.0-47.0); HEMOGLOBIN 9.7 g/dL (12.0-15.5); MEAN CORPUSCULAR HEMOGLOBIN 22.6 pg (27.0-33.4); MEAN CORPUSCULAR HGB CONC 31.9 g/dL (32.0-36.0); MEAN CORPUSCULAR VOLUME 71 fl (80-97); PLATELET COUNT 185 10^3/uL (150-450); RED BLOOD COUNT 4.29 10^6/uL (3.72-5.28); RED CELL DISTRIBUTION WIDTH 21.4 % (11.5-14.0); WHITE BLOOD COUNT 7.4 10^3/uL (4.0-10.5)
[2019-12-12 11:56] LABS: ANION GAP 11 (5-19); BLOOD UREA NITROGEN 12 mg/dL (7-20); CALCIUM 9.4 mg/dL (8.4-10.2); CARBON DIOXIDE 30 mmol/L (22-30); CHLORIDE 100 mmol/L (98-107); GLUCOSE 105 mg/dL (75-110); POTASSIUM 3.5 mmol/L (3.6-5.0)
[2019-12-12] MEDS ORDERED: FERUMOXYTOL (NON-ESRD) 510 MG/NS 100 ML IV ONE ×2 (12:00)
[2019-12-12] MEDS ORDERED: CARBOXYMETHYLCELLULOSE SOD 0.5% 0.4 ML DROPERETTE OU PRN (12:17)
[2019-12-12] MEDS ORDERED: CARBOXYMETHYLCELLULOSE SOD 0.5% 0.4 ML DROPERETTE OU ONE (13:00)
--- NOTE | 2019-12-12 15:00 | PDOC PROGRESS REPORT ---
Subjective Progress Note for:: 12/12/19 Subjective:: MERLE ROBERTS is a 84 year old female with a past medical history significant for CHF, DM 2, hypertension, hyperlipidemia, depression/anxiety, overactive bladder, and by medications likely COPD who was admitted 12/11/2019 with symptomatic anemia. Patient presents, cough with oxygen which is nonproductive. Patient is much better. She denies further dyspnea or orthopnea. She was placed on room air and continue to maintain oxygen saturations of 94% during our discussion. She is fatigued today but states that this is related to poor sleep; was up most of the night due to blood transfusions. She did meet with Dr. Estrella this morning and is agreeable to doing a thyroid biopsy, however, she wants to ensure that she is discharged tomorrow following the procedure because she has an appointment with urology early Saturday for Botox injections as manage ment of her overactive bladder. She denies fever, chills, chest pain, palpitations, abdominal pain, nausea vomiting diarrhea. She is questions or concerns at this time. No concerns per nursing. Reason For Visit: DYSPNEA, MICROCYTIC ANEMIA, RIGHT PLEURAL EFFUSION Physical Exam Vital Signs: Temp Pulse Resp BP Pulse Ox 97.9 F 85 16 172/65 H 96 12/12/19 11:08 12/12/19 11:08 12/12/19 11:08 12/12/19 11:08 12/12/19 11:08 Pulse Oximeter Nocturnal Start: 12/11/19 19:02 Freq: RTQ4 Status: Complete Protocol: Document 12/12/19 06:52 CMI (Rec: 12/12/19 06:53 CMI [id number]) Nocturnal Pulse Oximetry Equipment Usage Equipment Discontinued Continuous SpO2 Machine # 3 Intake & Output 12/11/19 12/12/19 12/13/19 06:59 06:59 06:59 Intake Total 350 Balance 350 Weight 72.9 kg General appearance: PRESENT: no acute distress, cooperative, well-developed, well-nourished Head exam: PRESENT: atraumatic, normocephalic Eye exam: PRESENT: conjunctiva pink, EOMI, PERRLA. ABSENT: scleral icterus Mouth exam: PRESENT: moist, tongue midline Respiratory exam: PRESENT: clear to auscultation marcelo, symmetrical, unlabored. ABSENT: rales, rhonchi, wheezes Cardiovascular exam: PRESENT: RRR. ABSENT: diastolic murmur, rubs, systolic murmur Pulses: PRESENT: normal dorsalis pedis pul Vascular exam: PRESENT: normal capillary refill Extremities exam: PRESENT: full ROM. ABSENT: calf tenderness, clubbing, pedal edema Neurological exam: PRESENT: alert, awake, oriented to person, oriented to place, oriented to time, oriented to situation, CN II-XII grossly intact. ABSENT: motor sensory deficit Psychiatric exam: PRESENT: appropriate affect, normal mood. ABSENT: homicidal ideation, suicidal ideation Skin exam: PRESENT: dry, intact, warm. ABSENT: cyanosis, rash Results Laboratory Results: 12/12/19 11:30 12/12/19 11:30 12/11/19 12/11/19 12/11/19 11:20 11:20 16:56 WBC RBC Hgb Hct MCV MCH MCHC RDW Plt Count Retic Count (auto) Sodium Potassium Chloride Carbon Dioxide Anion Gap BUN Creatinine Est GFR ( Amer) Glucose Lactic Acid 0.8 Calcium Iron TIBC Ferritin Vitamin B12 Folate TSH 2.86 Blood Type A POSITIVE Antibody Screen NEGATIVE 12/11/19 12/11/19 12/12/19 19:03 19:03 11:30 WBC 7.4 RBC 4.29 Hgb 9.7 L D Hct 30.4 L MCV 71 L MCH 22.6 L MCHC 31.9 L RDW 21.4 H Plt Count 185 Retic Count (auto) 1.49 Sodium Potassium Chloride Carbon Dioxide Anion Gap BUN Creatinine Est GFR ( Amer) Glucose Lactic Acid Calcium Iron < 10.1 L TIBC 413 Ferritin 7.43 L Vitamin B12 806.0 Folate 9.17 TSH Blood Type Antibody Screen 12/12/19 11:30 WBC RBC Hgb Hct MCV MCH MCHC RDW Plt Count Retic Count (auto) Sodium 141.4 Potassium 3.5 L Chloride 100 Carbon Dioxide 30 Anion Gap 11 BUN 12 Creatinine 1.01 Est GFR ( Amer) > 60 Glucose 105 Lactic Acid Calcium 9.4 Iron TIBC Ferritin Vitamin B12 Folate TSH Blood Type Antibody Screen 12/11/19 12/12/19 11:20 11:30 NT-Pro-B Natriuret Pep 2340 H 2870 H Impressions: Chest X-Ray 12/11/19 00:00 IMPRESSION: Dense opacity in the inferior aspect of the right hemithorax that could represent a combination of pleural fluid, atelectasis and or pneumonia. Chest CT 12/11/19 13:08 IMPRESSION: 1. Moderate right pleural effusion with associated right lower lobe atelectasis. Minimal left pleural effusion. 2. Enlarged heterogeneous thyroid gland that extends into the upper mediastinum as described. Recommend thyroid ultrasound. 3. There are 2 additional fluid collections in the upper mediastinum. Cannot exclude necrotic lymph nodes. 4. Thoracic degenerative disc disease and spondylosis. Thyroid Ultrasound 12/11/19 15:43 IMPRESSION: Multinodular goiter. Consider biopsy of the larger nodules. TIRADS 4 Assessment and Plan - Diagnosis (1) Microcytic anemia Is this a current diagnosis for this admission?: Yes Plan: Occult stool negative. Anemia panel reveals iron deficiency anemia. No evidence of active bleeding. CT imaging and thyroid ultrasound concerning for malignancy. Status post 2 units PRBC. Oncology is consulted; appreciate Dr. Estrella's assistance. Plans for iron transfusion today. (2) CHF (congestive heart failure) Qualifiers: Heart failure type: unspecified Heart failure chronicity: unspecified Qualified Code(s): I50.9 - Heart failure, unspecified Is this a current diagnosis for this admission?: Yes Plan: Stable and without exacerbation at this time. By [facility] records, patient with diagnosis of CHF. Patient cannot recall diagnosis. proBNP elevated 2300; normal proBNP April this year. We will continue her home dose losartan, Norvasc, simvastatin. Holding home dose of furosemide. We will diurese with IV furosemide 20 mg every 8 hours Cardiac diet. Daily weights, strict I&O's. (3) Dyspnea Qualifiers: Dyspnea type: dyspnea on exertion Qualified Code(s): R06.00 - Dyspnea, unspecified Is this a current diagnosis for this admission?: Yes Plan: Resolved. Secondary #1 and 2. Supplemental oxygen as needed for hypoxia. Currently maintaining oxygen saturations on room air. Supportive care. (4) Multinodular goiter Is this a current diagnosis for this admission?: Yes Plan: Ultrasound found enlarged thyroid lobes and isthmus with numerous nodules. CT of the chest incidentally found to fluid collection; could not exclude n ecrotic lymph nodes. CT soft tissue neck revealed markedly enlarged thyroid gland with associated na rrowing and displacement of the trachea. TSH is normal. Oncology consulted; spoke with Dr. Estrella. Plans for ultrasound biopsy of thyroid tomorrow. (5) Hypertension Is this a current diagnosis for this admission?: Yes Plan: Continue home dose losartan and amlodipine. IV furosemide for diuresis. Low-sodium diet. - Time Time Spent with patient: 25-34 minutes Medications reviewed and adjusted accordingly: Yes Anticipated Discharge Disposition: Care Home Facility Anticipated Discharge Timeframe: within 24 hours
[2019-12-12] MEDS: SIMVASTATIN 10 MG TABLET PO SCH (22:01)
[2019-12-13] MEDS: FUROSEMIDE INJ/PF 20 MG/2 ML SDV IV SCH (05:38)
[2019-12-13] MEDS: HEPARIN SOD (PORCINE) 5,000 UNIT/ML 1 ML VIAL SUBCUT SCH ×3 (05:38→23:08)
[2019-12-13 06:32] LABS: HEMATOCRIT 26.7 % (36.0-47.0); HEMOGLOBIN 8.7 g/dL (12.0-15.5); MEAN CORPUSCULAR HEMOGLOBIN 22.9 pg (27.0-33.4); MEAN CORPUSCULAR HGB CONC 32.4 g/dL (32.0-36.0); MEAN CORPUSCULAR VOLUME 70 fl (80-97); PLATELET COUNT 150 10^3/uL (150-450); RED BLOOD COUNT 3.79 10^6/uL (3.72-5.28); RED CELL DISTRIBUTION WIDTH 21.5 % (11.5-14.0); WHITE BLOOD COUNT 5.9 10^3/uL (4.0-10.5)
[2019-12-13 07:00] LABS: ANION GAP 10 (5-19); BLOOD UREA NITROGEN 14 mg/dL (7-20); CALCIUM 8.7 mg/dL (8.4-10.2); CARBON DIOXIDE 29 mmol/L (22-30); CHLORIDE 102 mmol/L (98-107); GLUCOSE 100 mg/dL (75-110)
[2019-12-13 07:55] LABS: POTASSIUM 2.6 mmol/L (3.6-5.0)
[2019-12-13] MEDS: INSULIN LISPRO 100 UNIT/ML 3 ML VIAL SUBCUT SCH ×4 (08:23→23:08)
[2019-12-13] MEDS: MAGNESIUM SULFATE/D5W 1 GM/100 ML RTUPB IV SCH ×2 (10:47→12:12)
[2019-12-13] MEDS: DOCUSATE SODIUM 100 MG CAPSULE PO SCH (10:48)
[2019-12-13] MEDS: FLUTICASONE NASAL SPRAY 50 MCG/SPRY 120 SPRAY/16 GM NASL SCH (10:48)
[2019-12-13] MEDS: SERTRALINE HCL 50 MG TABLET PO SCH (10:48)
[2019-12-13] MEDS: AMLODIPINE BESYLATE 10 MG TABLET PO SCH (10:49)
[2019-12-13] MEDS: FAMOTIDINE 20 MG TABLET PO SCH ×2 (10:50→23:09)
[2019-12-13] MEDS: LOSARTAN POTASSIUM 50 MG TABLET PO SCH (10:50)
[2019-12-13] MEDS ORDERED: POTASSIUM CHLORIDE 20 MEQ PACKET PO ONE (11:00)
--- NOTE | 2019-12-13 13:38 | PDOC PROGRESS REPORT ---
Subjective Progress Note for:: 12/13/19 Subjective:: MERLE ROBERTS is a 84 year old female with a past medical history significant for CHF, DM 2, hypertension, hyperlipidemia, depression/anxiety, overactive bladder, and by medications likely COPD who was admitted 12/11/2019 with symptomatic anemia. Patient was seen on morning rounds, she is found sitting up to the edge of the bed, comfortably on room air. She reports that she is feeling well; slept well today. Was able to lie flat without dyspnea. Today she tells me that she wishes to be discharged today or tomorrow, prior to having biopsy done. She states that she wishes to complete her rehabilitation time at [facility] and discharged to home and arrange for the biopsy as an outpatient. She is advised that even if she has her biopsy tomorrow, I still fully anticipated discharging her tomorrow afternoon. Patient confirms understanding but again states that she wished to have this done as an outpatient procedure. She denies fever, chills, chest pain, palpitations, abdominal pain, nausea vomiting diarrhea. She has no other questions or concerns at this time. No concerns per nursing. Reason For Visit: DYSPNEA, MICROCYTIC ANEMIA, RIGHT PLEURAL EFFUSION Physical Exam Vital Signs: Temp Pulse Resp BP Pulse Ox 98.0 F 66 20 151/61 H 93 12/12/19 23:41 12/13/19 02:00 12/12/19 23:41 12/12/19 23:41 12/12/19 23:41 Pulse Oximeter Nocturnal Start: 12/11/19 19:02 Freq: RTQ4 Status: Complete Protocol: Document 12/12/19 06:52 CMI (Rec: 12/12/19 06:53 CMI [id number]) Nocturnal Pulse Oximetry Equipment Usage Equipment Discontinued Continuous SpO2 Machine # 3 Intake & Output 12/12/19 12/13/19 12/14/19 06:59 06:59 06:59 Intake Total 350 350 100 Balance 350 350 100 Weight 72.9 kg 72.8 kg General appearance: PRESENT: no acute distress, well-developed, well-nourished Head exam: PRESENT: atraumatic, normocephalic Eye exam: PRESENT: conjunctiva pink, EOMI, PERRLA. ABSENT: scleral icterus Mouth exam: PRESENT: moist, tongue midline Respiratory exam: PRESENT: clear to auscultation marcelo, symmetrical, unlabored. ABSENT: rales, rhonchi, wheezes Cardiovascular exam: PRESENT: RRR. ABSENT: diastolic murmur, rubs, systolic murmur Vascular exam: PRESENT: normal capillary refill Extremities exam: PRESENT: full ROM. ABSENT: calf tenderness, clubbing, pedal edema Neurological exam: PRESENT: alert, awake, oriented to person, oriented to place, oriented to time, oriented to situation, CN II-XII grossly intact. ABSENT: motor sensory deficit Psychiatric exam: PRESENT: appropriate affect, normal mood. ABSENT: homicidal ideation, suicidal ideation Skin exam: PRESENT: dry, intact, warm. ABSENT: cyanosis, rash Results Laboratory Results: 12/13/19 06:17 12/13/19 06:17 12/13/19 12/13/19 12/13/19 06:17 06:17 06:17 WBC 5.9 RBC 3.79 Hgb 8.7 L Hct 26.7 L MCV 70 L MCH 22.9 L MCHC 32.4 RDW 21.5 H Plt Count 150 Sodium 140.7 Potassium 2.6 L* Chloride 102 Carbon Dioxide 29 Anion Gap 10 BUN 14 Creatinine 0.92 Est GFR ( Amer) > 60 Glucose 100 Calcium 8.7 Magnesium 1.4 L 12/11/19 12/12/19 12/13/19 11:20 11:30 06:17 NT-Pro-B Natriuret Pep 2340 H 2870 H 2150 H Impressions: Chest X-Ray 12/11/19 00:00 IMPRESSION: Dense opacity in the inferior aspect of the right hemithorax that could represent a combination of pleural fluid, atelectasis and or pneumonia. Chest CT 12/11/19 13:08 IMPRESSION: 1. Moderate right pleural effusion with associated right lower lobe atelectasis. Minimal left pleural effusion. 2. Enlarged heterogeneous thyroid gland that extends into the upper mediastinum as described. Recommend thyroid ultrasound. 3. There are 2 additional fluid collections in the upper mediastinum. Cannot exclude necrotic lymph nodes. 4. Thoracic degenerative disc disease and spondylosis. Thyroid Ultrasound 12/11/19 15:43 IMPRESSION: Multinodular goiter. Consider biopsy of the larger nodules. TIRADS 4 Assessment and Plan - Diagnosis (1) Microcytic anemia Is this a current diagnosis for this admission?: Yes Plan: Occult stool negative. Anemia panel reveals iron deficiency anemia. No evidence of active bleeding. CT imaging and thyroid ultrasound concerning for malignancy. Status post 2 units PRBC. Received Feraheme yesterday. Oncology is consulted; appreciate Dr. Estrella's assistance. Outpatient follow-up. (2) CHF (congestive heart failure) Qualifiers: Heart failure type: unspecified Heart failure chronicity: unspecified Qualified Code(s): I50.9 - Heart failure, unspecified Is this a current diagnosis for this admission?: Yes Plan: Stable and without exacerbation at this time. By SNF records, patient with diagnosis of CHF. Patient cannot recall diagnosis. proBNP elevated 0; normal proBNP April this year. We will continue her home dose losartan, Norvasc, simvastatin. Resume p.o. furosemide 40 mg daily. Cardiac diet. Daily weights, strict I&O's. (3) Dyspnea Qualifiers: Dyspnea type: dyspnea on exertion Qualified Code(s): R06.00 - Dyspnea, unspecified Is this a current diagnosis for this admission?: Yes Plan: Resolved. Secondary #1 and 2. Supplemental oxygen as needed for hypoxia. Currently maintaining oxygen saturations on room air. Supportive care. (4) Multinodular goiter Is this a current diagnosis for this admission?: Yes Plan: Ultrasound found enlarged thyroid lobes and isthmus with numerous nodules. CT of the chest incidentally found to fluid collection; could not exclude necrotic lymph nodes. CT soft tissue neck revealed markedly enlarged thyroid gland with associated narrowing and displacement of the trachea. TSH is normal. Oncology consulted; spoke with Dr. Estrella. Patient requesting to discharge with follow-up appointment with Dr. Estrella. States that she would prefer to have biopsy completed as outpatient procedure. (5) Hypertension Is this a current diagnosis for this admission?: Yes Plan: Continue home dose losartan and amlodipine. Resume p.o. furosemide Low-sodium diet. (6) Hypomagnesemia Is this a current diagnosis for this admission?: Yes Plan: Likely secondary to IV diuresis. IV replacement today. Repeat level in the AM. (7) Hypokalemia Is this a current diagnosis for this admission?: Yes Plan: Likely secondary to IV diuresis. Have replaced Mag. PO and IV replacement today. Follow up chemistry. - Time Time Spent with patient: 25-34 minutes Medications reviewed and adjusted accordingly: Yes Anticipated Discharge Disposition: [facility] Facility Anticipated Discharge Timeframe: within 24 hours
[2019-12-13] MEDS: POTASSI CL 20 MEQ/50 ML RIDER 20 MEQ/50 ML RTUPB IV SCH ×2 (14:09→15:55)
[2019-12-13] MEDS: SIMVASTATIN 10 MG TABLET PO SCH (23:09)
[2019-12-14] MEDS: HEPARIN SOD (PORCINE) 5,000 UNIT/ML 1 ML VIAL SUBCUT SCH ×2 (06:03→15:19)
--- NOTE | 2019-12-14 07:54 | PDOC PROGRESS REPORT ---
Subjective Progress Note for:: 12/14/19 Subjective:: Patient doing okay this morning. Really wants to go back to [facility] so she can get her bladder Botox injection tomorrow as scheduled. Discussed with nursing to find out if the ultrasound-guided thyroid biopsy can be done today or not. Reason For Visit: DYSPNEA, MICROCYTIC ANEMIA, RIGHT PLEURAL EFFUSION Physical Exam Vital Signs: Temp Pulse Resp BP Pulse Ox 97.7 F 69 18 163/67 H 91 L 12/13/19 23:23 12/14/19 02:00 12/13/19 23:23 12/13/19 23:23 12/13/19 23:23 Pulse Oximeter Nocturnal Start: 12/11/19 19:02 Freq: RTQ4 Status: Complete Protocol: Document 12/12/19 06:52 CMI (Rec: 12/12/19 06:53 CMI [id number]) Nocturnal Pulse Oximetry Equipment Usage Equipment Discontinued Continuous SpO2 Machine # 3 Intake & Output 12/13/19 12/14/19 12/15/19 06:59 06:59 06:59 Intake Total 350 294 Balance 350 294 Weight 72.8 kg 71.6 kg General appearance: PRESENT: no acute distress, well-developed, well-nourished Head exam: PRESENT: atraumatic, normocephalic Eye exam: PRESENT: conjunctiva pink, EOMI, PERRLA. ABSENT: scleral icterus Ear exam: PRESENT: normal external ear exam Mouth exam: PRESENT: moist, tongue midline Neck exam: ABSENT: carotid bruit, JVD, lymphadenopathy, thyromegaly Respiratory exam: PRESENT: clear to auscultation marcelo. ABSENT: rales, rhonchi, wheezes Cardiovascular exam: PRESENT: RRR. ABSENT: diastolic murmur, rubs, systolic murmur Pulses: PRESENT: normal dorsalis pedis pul Vascular exam: PRESENT: normal capillary refill GI/Abdominal exam: PRESENT: normal bowel sounds, soft. ABSENT: distended, guarding, mass, organolmegaly, rebound, tenderness Rectal exam: PRESENT: deferred Extremities exam: PRESENT: full ROM. ABSENT: calf tenderness, clubbing, pedal edema Neurological exam: PRESENT: alert, awake, oriented to person, oriented to place, oriented to time, oriented to situation, CN II-XII grossly intact. ABSENT: motor sensory deficit Psychiatric exam: PRESENT: appropriate affect, normal mood. ABSENT: homicidal ideation, suicidal ideation Skin exam: PRESENT: dry, intact, warm. ABSENT: cyanosis, rash Results Laboratory Results: 12/13/19 06:17 12/13/19 06:17 12/13/19 12/13/19 06:17 06:17 Sodium 140.7 Potassium 2.6 L* Chloride 102 Carbon Dioxide 29 Anion Gap 10 BUN 14 Creatinine 0.92 Est GFR ( Amer) > 60 Glucose 100 Calcium 8.7 Magnesium 1.4 L 12/11/19 12/12/19 12/13/19 11:20 11:30 06:17 NT-Pro-B Natriuret Pep 2340 H 2870 H 2150 H Impressions: Chest X-Ray 12/11/19 00:00 IMPRESSION: Dense opacity in the inferior aspect of the right hemithorax that could represent a combination of pleural fluid, atelectasis and or pneumonia. Chest CT 12/11/19 13:08 IMPRESSION: 1. Moderate right pleural effusion with associated right lower lobe atelectasis. Minimal left pleural effusion. 2. Enlarged heterogeneous thyroid gland that extends into the upper mediastinum as described. Recommend thyroid ultrasound. 3. There are 2 additional fluid collections in the upper mediastinum. Cannot exclude necrotic lymph nodes. 4. Thoracic degenerative disc disease and spondylosis. Thyroid Ultrasound 12/11/19 15:43 IMPRESSION: Multinodular goiter. Consider biopsy of the larger nodules. TIRADS 4 Assessment & Plan - Diagnosis (1) Anemia Qualifiers: Anemia type: iron deficiency Qualified Code(s): D50.8 - Other iron deficiency anemias Is this a current diagnosis for this admission?: Yes Plan: Hemoglobin slight drop but overall stable should improve over time (2) Multinodular goiter Is this a current diagnosis for this admission?: Yes Plan: Thyroid biopsy pending, we will see if he can get done today, if it can get done today then okay to DC and then do as an outpatient - Time Time Spent with patient: 15-24 minutes
[2019-12-14 08:49] LABS: ANION GAP 9 (5-19); CALCIUM 9.5 mg/dL (8.4-10.2); CARBON DIOXIDE 29 mmol/L (22-30); CHLORIDE 104 mmol/L (98-107); GLUCOSE 109 mg/dL (75-110); POTASSIUM 3.9 mmol/L (3.6-5.0)
[2019-12-14 08:51] LABS: BLOOD UREA NITROGEN 12 mg/dL (7-20)
[2019-12-14] MEDS: INSULIN LISPRO 100 UNIT/ML 3 ML VIAL SUBCUT SCH ×2 (09:11→13:25)
[2019-12-14] MEDS ORDERED: FUROSEMIDE 40 MG TABLET PO SCH (10:00)
--- NOTE | 2019-12-14 10:23 | PDOC TRANSFER SUMMARY ---
Impression - Admit/DC Date/PCP Admission Date/Primary Care Provider: 12/11/19 18:43 KI GILLIS MD Discharge Date: 12/14/19 - Discharge Diagnosis (1) Microcytic anemia Is this a current diagnosis for this admission?: Yes (2) CHF (congestive heart failure) Is this a current diagnosis for this admission?: Yes (3) Dyspnea Is this a current diagnosis for this admission?: Yes (4) Multinodular goiter Is this a current diagnosis for this admission?: Yes (5) Hypertension Is this a current diagnosis for this admission?: Yes (6) Hypomagnesemia Is this a current diagnosis for this admission?: Yes (7) Hypokalemia Is this a current diagnosis for this admission?: Yes - Additional Information Resuscitation Status: Do Not Resuscitate Discharge Diet: Regular Discharge Activity: Activity As Tolerated, Balance Activity w/Rest, Slowly Increase Activity, Supervised Activity Referrals: KI GILLIS MD [Primary Care Provider] - Follow up as needed HÉCTOR FLYNN MD [ACTIVE STAFF] - (At earliest available appointment for further evaluation for CHF) TOO ESTRELLA MD [ACTIVE STAFF] - (Follow up within 2 weeks.) Home Medications: Amlodipine Besylate [Norvasc 10 mg Tablet] 10 mg PO DAILY 04/14/19 Losartan Potassium [Cozaar 100 mg Tablet] 100 mg PO DAILY 04/14/19 Metformin HCl [Glucophage 500 mg Tablet] 500 mg PO BIDACBS 04/14/19 Simvastatin [Zocor 20 mg Tablet] 20 mg PO QHS 04/14/19 Cyanocobalamin (Vitamin B-12) [Vitamin B-12 1000 mcg Tablet] 1 tab PO DAILY 12/11/19 Docusate Sodium [Colace 100 mg Capsule] 100 mg PO DAILY 12/11/19 Eyelid Cleanser Combination 9 [Systane] 2 each TP QID 12/11/19 Fluticasone Propionate [Flonase Nasal [place] 50 Mcg/[place] 16 gm] 1 spray NASL DAILY 12/11/19 Fluticasone/Salmeterol [Advair 250-50 Diskus 14 Dose/Diskus] 1 inh IH Q12 12/11/19 Loperamide HCl [Imodium 2 mg Capsule] 2 mg PO Q4HP PRN 12/11/19 Sertraline HCl 25 mg PO QPM 12/11/19 Acetaminophen [Tylenol 325 mg Tablet] 650 mg PO Q4HP PRN tablet 12/14/19 Furosemide [Lasix 40 mg Tablet] 40 mg PO DAILY #0 MDD FOR 3 DAYS 12/14/19 History of Present Illiness History of Present Illness: MERLE ROBERTS is a 84 year old female with a past medical history significant for CHF, DM 2, hypertension, hyperlipidemia, depression/anxiety, overactive bladder, and by medications likely COPD who presented to the emergency department from SNF with complaint of generalized weakness/fatigue and orthopnea. Patient reports that she recently was treated for pneumonia as an outpatient. Evaluation in the emergency department revealed Hypertension but otherwise stable vital signs, microcytic anemia (hemoglobin 7.0; baseline 10), normal PT/INR, VBG, unremarkable chemistry, lactic acid, TSH. proBNP elevated 2300 which is slightly above her baseline. Urinalysis negative for UTI. Occult stool negative for blood. Chest x-ray revealed right lower lobe atelectasis versus pneumonia with pleural effusion. Follow-ups chest CT demonstrated a moderate right pleural effusion with associated right lower lobe atelectasis. Incidentally found to have an enlarged heterogeneous thyroid and 2 additional fluid collections in the upper mediastinum (could not exclude necrotic lymph nodes) with recommendation for ultrasound follow-up. Thyroid ultrasound revealed enlarged heterogeneous lobes with numerous nodules; largest measuring 2.4 mm. Isthmus containing a 22 mm nodule. Patient is referred to the hospitalist service for further evaluation and management of the above-stated complaints and findings. Hospital Course Hospital Course: (1) Microcytic anemia Occult stool negative. Anemia panel reveals iron deficiency anemia. No evidence of active bleeding. CT imaging and thyroid ultrasound concerning for malignancy. Status post 2 units PRBC. Received Feraheme. Oncology is consulted; appreciate Dr. Estrella's assistance. Outpatient follow-up. (2) CHF (congestive heart failure) Stable and without exacerbation at this time. By SNF records, patient with diagnosis of CHF. Patient cannot recall diagnosis. proBNP elevated 2k; normal proBNP April this year. We will continue her home dose losartan, Norvasc, simvastatin. Resume p.o. furosemide 40 mg daily. Cardiac diet. Daily weights, strict I&O's. Outpatient follow up with cardiology, Dr. Goldberg, for further evaluation. (3) Dyspnea Resolved. Secondary #1 and 2. Supportive care. (4) Multinodular goiter Ultrasound found enlarged thyroid lobes and isthmus with numerous nodules. CT of the chest incidentally found to fluid collection; could not exclude necrotic lymph nodes. CT soft tissue neck revealed markedly enlarged thyroid gland with associated narrowing and displacement of the trachea. TSH is normal. Oncology consulted; spoke with Dr. Estrella. Patient prefers to have biopsy completed as outpatient procedure. She was not on the schedule for today. Will discharge with recommendations for close outpatient follow up w/ Dr. Estrella. (5) Hypertension Somewhat elevated; overall acceptable for age. Continue home dose losartan and amlodipine. Continue p.o. furosemide 40 mg daily. Low-sodium diet. Outpatient follow up. (6) Hypomagnesemia Replete. Likely secondary to IV diuresis. (7) Hypokalemia Replete. Likely secondary to IV diuresis. Physical Exam Vital Signs: Temp Pulse Resp BP Pulse Ox 97.7 F 69 18 163/67 H 91 L 12/13/19 23:23 12/14/19 02:00 12/13/19 23:23 12/13/19 23:23 12/13/19 23:23 Pulse Oximeter Nocturnal Start: 12/11/19 19:02 Freq: RTQ4 Status: Complete Protocol: Document 12/12/19 06:52 CMI (Rec: 12/12/19 06:53 CMI [id number]) Nocturnal Pulse Oximetry Equipment Usage Equipment Discontinued Continuous SpO2 Machine # 3 Intake & Output 12/13/19 12/14/19 12/15/19 06:59 06:59 06:59 Intake Total 350 294 Balance 350 294 Weight 72.8 kg 71.6 kg General appearance: PRESENT: no acute distress, cooperative, well-developed, well-nourished Head exam: PRESENT: atraumatic, normocephalic Eye exam: PRESENT: conjunctiva pink, EOMI, PERRLA. ABSENT: scleral icterus Mouth exam: PRESENT: moist, tongue midline Respiratory exam: PRESENT: clear to auscultation marcelo, symmetrical, unlabored. ABSENT: rales, rhonchi, wheezes Cardiovascular exam: PRESENT: RRR. ABSENT: diastolic murmur, rubs, systolic murmur Vascular exam: PRESENT: normal capillary refill Extremities exam: PRESENT: full ROM. ABSENT: calf tenderness, clubbing, pedal edema Neurological exam: PRESENT: alert, awake, oriented to person, oriented to place, oriented to time, oriented to situation, CN II-XII grossly intact. ABSENT: motor sensory deficit Psychiatric exam: PRESENT: appropriate affect, normal mood. ABSENT: homicidal ideation, suicidal ideation Skin exam: PRESENT: dry, intact, warm. ABSENT: cyanosis, rash Results Laboratory Results: WBC 5.9 10^3/uL (4.0-10.5) 12/13/19 06:17 RBC 3.79 10^6/uL (3.72-5.28) 12/13/19 06:17 Hgb 8.7 g/dL (12.0-15.5) L 12/13/19 06:17 Hct 26.7 % (36.0-47.0) L 12/13/19 06:17 MCV 70 fl (80-97) L 12/13/19 06:17 MCH 22.9 pg (27.0-33.4) L 12/13/19 06:17 MCHC 32.4 g/dL (32.0-36.0) 12/13/19 06:17 RDW 21.5 % (11.5-14.0) H 12/13/19 06:17 Plt Count 150 10^3/uL (150-450) 12/13/19 06:17 Lymph % (Auto) 14.0 % (13-45) 12/11/19 11:20 [place] % (Auto) 9.1 % (3-13) 12/11/19 11:20 Eos % (Auto) 2.1 % (0-6) 12/11/19 11:20 Baso % (Auto) 1.1 % (0-2) 12/11/19 11:20 Reticulocyte # 0.046 10^6/uL (0.028-0.122) 12/11/19 19:03 Absolute Neuts (auto) 4.4 10^3/uL (1.7-8.2) 12/11/19 11:20 Absolute Lymphs (auto) 0.8 10^3/uL (0.5-4.7) 12/11/19 11:20 Absolute Monos (auto) 0.5 10^3/uL (0.1-1.4) 12/11/19 11:20 Absolute Eos (auto) 0.1 10^3/uL (0.0-0.6) 12/11/19 11:20 Absolute Basos (auto) 0.1 10^3/uL (0.0-0.2) 12/11/19 11:20 Seg Neutrophils % 73.7 % (42-78) 12/11/19 11:20 Retic Count (auto) 1.49 % (0.66-2.85) 12/11/19 19:03 PT 13.4 SEC (11.4-15.4) 12/11/19 11:20 INR 1.00 12/11/19 11:20 VBG pH 7.40 (7.30-7.42) 12/11/19 11:20 VBG pCO2 44.4 mmHg (35-63) 12/11/19 11:20 VBG HCO3 26.6 mmol/L (20-32) 12/11/19 11:20 VBG Base Excess 1.5 mmol/L 12/11/19 11:20 Sodium 142.2 mmol/L (137-145) 12/14/19 07:55 Potassium 3.9 mmol/L (3.6-5.0) 12/14/19 07:55 Chloride 104 mmol/L (98-107) 12/14/19 07:55 Carbon Dioxide 29 mmol/L (22-30) 12/14/19 07:55 Anion Gap 9 (5-19) 12/14/19 07:55 BUN 12 mg/dL (7-20) 12/14/19 07:55 Creatinine 0.89 mg/dL (0.52-1.25) 12/14/19 07:55 Est GFR ( Amer) > 60 (>60) 12/14/19 07:55 Est GFR (MDRD) Non-Af > 60 (>60) 12/14/19 07:55 Glucose 109 mg/dL (75-110) 12/14/19 07:55 POC Glucose 118 mg/dL (70-110) H 12/14/19 06:34 Lactic Acid 0.8 mmol/L (0.7-2.1) 12/11/19 16:56 Calcium 9.5 mg/dL (8.4-10.2) 12/14/19 07:55 Magnesium 2.1 mg/dL (1.6-2.3) 12/14/19 07:55 Iron < 10.1 ug/dL (37-170) L 12/11/19 19:03 TIBC 413 ug/dL (250-450) 12/11/19 19:03 Iron Saturation UNABLE TO CALCULATE % (15% - 50%) 12/11/19 19:03 Ferritin 7.43 ng/mL (11.1-264.0) L 12/11/19 19:03 Total Bilirubin 0.6 mg/dL (0.2-1.3) 12/11/19 11:20 Direct Bilirubin 0.3 mg/dL (0.0-0.4) 12/11/19 11:20 Neonat Total Bilirubin Not Reportable 12/11/19 11:20 Neonat Direct Bilirubin Not Reportable 12/11/19 11:20 Neonat Indirect Bili Not Reportable 12/11/19 11:20 AST 22 U/L (14-36) 12/11/19 11:20 ALT 14 U/L (<35) 12/11/19 11:20 Alkaline Phosphatase 67 U/L (38-126) 12/11/19 11:20 NT-Pro-B Natriuret Pep 2150 pg/mL (<450) H 12/13/19 06:17 Total Protein 7.6 g/dL (6.3-8.2) 12/11/19 11:20 Albumin 4.5 g/dL (3.5-5.0) 12/11/19 11:20 Vitamin B12 806.0 pg/mL (239-931) 12/11/19 19:03 Folate 9.17 ng/mL (>2.76) 12/11/19 19:03 TSH 2.86 uIU/mL (0.47-4.68) 12/11/19 11:20 Urine Color YELLOW 12/11/19 13:00 Urine Appearance SLIGHTLY-CLOUDY 12/11/19 13:00 Urine pH 7.0 (5.0-9.0) 12/11/19 13:00 Ur Specific [place] 1.009 12/11/19 13:00 Urine Protein NEGATIVE mg/dL (NEGATIVE) 12/11/19 13:00 Urine Glucose (UA) NEGATIVE mg/dL (NEGATIVE) 12/11/19 13:00 Urine Ketones NEGATIVE mg/dL (NEGATIVE) 12/11/19 13:00 Urine Blood NEGATIVE (NEGATIVE) 12/11/19 13:00 Urine Nitrite (Reflex) POSITIVE (NEGATIVE) H 12/11/19 13:00 Urine Bilirubin NEGATIVE (NEGATIVE) 12/11/19 13:00 Urine Urobilinogen NEGATIVE mg/dL (<2.0) 12/11/19 13:00 Leukocyte Esterase Rfl SMALL (NEGATIVE) H 12/11/19 13:00 Urine RBC (Auto) 0 /HPF 12/11/19 13:00 U Hyaline Cast (Auto) 1 /LPF 12/11/19 13:00 Urine Bacteria (Auto) 1+ /HPF 12/11/19 13:00 Urine WBC (Reflex) 5 /HPF 12/11/19 13:00 Urine Mucus (Auto) RARE /LPF 12/11/19 13:00 Urine Ascorbic Acid NEGATIVE (NEGATIVE) 12/11/19 13:00 POC Stool Occult Blood NEGATIVE (NEGATIVE) 12/11/19 12:31 Blood Type A POSITIVE 12/11/19 11:20 Blood Type Confirm A POSITIVE 12/11/19 19:03 Antibody Screen NEGATIVE 12/11/19 11:20 Crossmatch See Detail 12/11/19 11:20 12/11/19 12/12/19 12/13/19 11:20 11:30 06:17 NT-Pro-B Natriuret Pep 2340 H 2870 H 2150 H Impressions: Chest X-Ray 12/11/19 00:00 IMPRESSION: Dense opacity in the inferior aspect of the right hemithorax that could represent a combination of pleural fluid, atelectasis and or pneumonia. Chest CT 12/11/19 13:08 IMPRESSION: 1. Moderate right pleural effusion with associated right lower lobe atelectasis. Minimal left pleural effusion. 2. Enlarged heterogeneous thyroid gland that extends into the upper mediastinum as described. Recommend thyroid ultrasound. 3. There are 2 additional fluid collections in the upper mediastinum. Cannot exclude necrotic lymph nodes. 4. Thoracic degenerative disc disease and spondylosis. Thyroid Ultrasound 12/11/19 15:43 IMPRESSION: Multinodular goiter. Consider biopsy of the larger nodules. TIRADS 4 Plan Plan of Treatment: Patient is discharged to SNF. Follow up with primary care provider within 1 week. Recommend repeat CBC and BMP within 5-7 days. Establish with hat lining blocker at earliest available appointment for outpatient evaluation for heart failure; referral placed to Dr. Goldberg. Follow up with Dr. Estrella within 2 weeks. Recommended to have a Thyroid biopsy. Take medications as prescribed. Return to the emergency department as needed for concerning symptoms. Time Spent: Greater than 30 Minutes Stroke Is this a Stroke Patient?: No Acute Heart Failure - Is this a Heart Failure Patient?: No
[2019-12-14] MEDS: SERTRALINE HCL 50 MG TABLET PO SCH (10:51)
[2019-12-14] MEDS: LOSARTAN POTASSIUM 50 MG TABLET PO SCH (10:52)
[2019-12-14] MEDS: AMLODIPINE BESYLATE 10 MG TABLET PO SCH (10:52)
[2019-12-14] MEDS: FAMOTIDINE 20 MG TABLET PO SCH (10:52)
[2019-12-14] MEDS: DOCUSATE SODIUM 100 MG CAPSULE PO SCH (10:52)
[2019-12-14] MEDS: FLUTICASONE NASAL SPRAY 50 MCG/SPRY 120 SPRAY/16 GM NASL SCH (10:52)
[2019-12-14 15:41] VITALS: BP 154/68
== END 2019-12-14 15:42 ==
LOC: ER 11:01 → EH 18:43 → 4S 20:54
PROVIDERS: ADMIT Internal Medicine; ATTEND Registered Nurse
DX: D50.8 Other iron deficiency anemias (principal); E11.22 Type 2 diabetes mellitus with diabetic chronic kidney disease; I13.0 Hypertensive heart and chronic kidney disease with heart failure and stage 1 through stage 4 chronic kidney disease, or unspecified chronic kidney disease; I50.9 Heart failure, unspecified; N18.9 Chronic kidney disease, unspecified; R06.00 Dyspnea, unspecified; E04.2 Nontoxic multinodular goiter; E83.42 Hypomagnesemia; E87.6 Hypokalemia; E78.5 Hyperlipidemia, unspecified; J98.11 Atelectasis; F32.9 Major depressive disorder, single episode, unspecified; R26.2 Difficulty in walking, not elsewhere classified; F41.9 Anxiety disorder, unspecified; R30.0 Dysuria; N32.81 Overactive bladder; Z66 Do not resuscitate; Z87.01 Personal history of pneumonia (recurrent); Z79.899 Other long term (current) drug therapy; Z79.84 Long term (current) use of oral hypoglycemic drugs; Z79.51 Long term (current) use of inhaled steroids
CPT/HCPCS: 93005; 99285; 86900; 86901; 36415 ×4; 87040; 87086; 36430; 86850; 82962 ×4; 82607; 82728; 82746; 83540; 83550; 83605; 83735 ×2; 84443; 85025; 85027 ×2; 85610; 82270; 87088; 85045; 80048 ×3; 80053; 81001; 87186; 86920; 82803; 83880 ×3; 71045; 76536; 70490; 71260; 94799 ×2; 93010; 94762; G0378 ×5; P9016 ×2; A9270 ×23; Q0138; J1644 ×3; J1940 ×3; J3475; J3480; J7050; J3490; J1815